=== PATIENT | male | born 1925 | race Caucasian/White ===

== ENCOUNTER 2016-06-07 17:04 | Observation (INO) | payer MEDICARE, BC ==
[2016-06-07] MEDS ORDERED: NITROGLYCERIN OINT 1 INCH/GM PACKET TOPICAL STA (17:42)
[2016-06-07] MEDS ORDERED: ASPIRIN 81 MG CHEW PO STA (17:42)
--- NOTE | 2016-06-07 17:45 | ED ---
General Adult HPI - General Chief complaint: Chest Pain Stated complaint: chest pain Time Seen by Provider: 06/07/16 17:38 Source: patient, family, RN notes reviewed Mode of arrival: ambulatory Limitations: no limitations - History of Present Illness Initial comments: Patient is a pleasant 89-year-old male presenting to the emergency Department with plaints of chest discomfort. Onset of symptoms was around noon. Discomfort has been intermittent. Discomfort is sharp of the left chest. No Associated dyspnea, nausea, or diaphoresis. Patient is unclear if he has had similar symptoms previously. No leg pain or swelling. No cough or fever. - Related Data Home Medications Medication Instructions Recorded Confirmed Budesonide/Formoterol Fumarate 1 puff INHALATION RT-BID 01/14/15 06/07/16 [Symbicort 160-4.5 Mcg Inhaler] Enalapril [Vasotec] 2.5 mg PO DAILY 01/14/15 06/07/16 Ezetimibe [Zetia] 10 mg PO HS 01/14/15 06/07/16 Isosorbide Mononitrate ER [Imdur] 30 mg PO DAILY 01/14/15 06/07/16 Levothyroxine Sodium [Synthroid] 25 mcg PO DAILY 01/14/15 06/07/16 Metoprolol Tartrate [Lopressor] 25 mg PO DAILY 01/14/15 06/07/16 Simvastatin 40 mg PO HS 01/14/15 06/07/16 Vit A,C & E/Lutein/Minerals 1 tab PO BID 01/14/15 06/07/16 [Ocuvite with Lutein Tablet] Docusate [Colace] 100 mg PO HS 04/08/15 06/07/16 Ipratropium-Albuterol Nebulize 3 ml INHALATION RT-BID 04/08/15 06/07/16 [Duoneb 0.5 mg-3 mg/3 ml Soln] Diltiazem HCl 60 mg PO DAILY 08/12/15 06/07/16 Clopidogrel Bisulfate [Plavix] 75 mg PO DAILY 10/01/15 06/07/16 Aspirin EC [Ecotrin Low Dose] 81 mg PO DAILY 10/02/15 06/07/16 Pantoprazole Sodium [Protonix] 40 mg PO AC-BID 06/07/16 06/07/16 Previous Rx's Medication Instructions Recorded Nitroglycerin Sl Tabs [Nitrostat] 0.4 mg SUBLINGUAL Q5M PRN #25 tab 10/03/15 Allergies Allergy/AdvReac Type Severity Reaction Status Date / Time No Known Allergies Allergy Verified 06/07/16 17:24 Review of Systems ROS Statement: Those systems with pertinent positive or pertinent negative responses have been documented in the HPI. ROS Other: All systems not noted in ROS Statement are negative. Constitutional: Denies: fever Eyes: Denies: eye pain ENT: Denies: ear pain Respiratory: Reports: dyspnea (Chronic, unchanged). Denies: cough Cardiovascular: Reports: chest pain. Denies: palpitations Endocrine: Denies: fatigue Gastrointestinal: Denies: abdominal pain Genitourinary: Denies: dysuria Musculoskeletal: Denies: back pain Skin: Denies: rash Neurological: Denies: weakness Past Medical History Past Medical History: Chest Pain / Angina, Eye Disorder, Hyperlipidemia, Hypertension, Myocardial Infarction ([place]) Additional Past Medical History / Comment(s): HX HEART MURMURS/PALPITATIONS. 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 KIDNEY STONES. O2 2L/NC AT HS Last Myocardial Infarction Date:: 2004 History of Any Multi-Drug Resistant Organisms: None Reported Past Surgical History: Heart Catheterization, Heart Catheterization With Stent, Hernia Repair, Joint Replacement, Orthopedic Surgery Additional Past Surgical History / Comment(s): BILAT CATARACTS REMOVED. COLONOSCOPY. CYSTOSCOPY. RT KNEE SCOPE. RT TKA. Bilate kidney stones removed. LT DESI X2 Past Anesthesia/Blood Transfusion Reactions: Postoperative Nausea & Vomiting ( PONV) Date of Last Stent Placement:: 2002 & 2012 Past Psychological History: No Psychological Hx Reported Smoking Status: Former smoker Past Alcohol Use History: None Reported Past Drug Use History: None Reported - Past Family History Father Family Medical History: Renal Disease Mother Family Medical History: Diabetes Mellitus General Exam Limitations: no limitations General appearance: alert, in no apparent distress Head exam: Present: atraumatic Eye exam: Present: normal appearance, PERRL ENT exam: Present: normal oropharynx Neck exam: Present: normal inspection Respiratory exam: Present: normal lung sounds bilaterally. Absent: chest wall tenderness Cardiovascular Exam: Present: regular rate, normal rhythm Expanded Peripheral pulses: 2+: Radial (R), Radial (L), Posterior Tibialis (R), Posterior Tibialis (L) GI/Abdominal exam: Present: soft. Absent: tenderness Extremities exam: Present: normal inspection. Absent: pedal edema, calf tenderness Neurological exam: Present: alert Psychiatric exam: Present: normal affect, normal mood Skin exam: Absent: rash Course Vital Signs 06/07/16 06/07/16 17:13 19:11 Temperature 98.5 F Pulse Rate 63 60 Respiratory 18 18 Rate Blood Pressure 163/78 163/79 O2 Sat by Pulse 96 96 Oximetry EKG Findings - EKG Comments: EKG Findings:: Sinus rhythm at 64. Premature atrial complexes Are present. IN 202. QRS 86. QT 388. QTC 400. Left axis. Criteria for LVH. No acute ST change. Medical Decision Making - Medical Decision Making Patient reexamined and resting comfortably in bed. Symptoms improved with nitroglycerin paste. Patient and family updated on results and plans. Case discussed in detail with Dr. Gutierrez, who will admit his patient. Consult placed for Dr. Clemons, heparin started, admission orders placed. - Lab Data Result diagrams: 06/07/16 17:25 06/07/16 17:25 Lab Results 06/07/16 06/07/16 06/07/16 Range/Units 17:25 17:25 17:25 WBC 5.8 (3.8-10.6) k/uL RBC 4.71 (4.30-5.90) m/uL Hgb 14.5 (13.0-17.5) gm/dL Hct 42.6 (39.0-53.0) % MCV 90.5 (80.0-100.0) fL MCH 30.7 (25.0-35.0) pg MCHC 34.0 (31.0-37.0) g/dL RDW 14.1 (11.5-15.5) % Plt Count 161 (150-450) k/uL Neutrophils % 63 % Lymphocytes % 24 % Monocytes % 7 % Eosinophils % 3 % Basophils % 1 % Neutrophils # 3.7 (1.3-7.7) k/uL Lymphocytes # 1.4 (1.0-4.8) k/uL Monocytes # 0.4 (0-1.0) k/uL Eosinophils # 0.2 (0-0.7) k/uL Basophils # 0.0 (0-0.2) k/uL PT (9.0-12.0) sec INR (<1.1) APTT (22.0-30.0) sec Sodium 146 H (137-145) mmol/L Potassium 4.7 (3.5-5.1) mmol/L Chloride 107 (98-107) mmol/L Carbon Dioxide 24 (22-30) mmol/L Anion Gap 15 mmol/L BUN 25 H (9-20) mg/dL Creatinine 1.51 H (0.66-1.25) mg/dL Est GFR (MDRD) Af Amer 53 (>60 ml/min/1.73 sqM) Est GFR (MDRD) Non-Af 44 (>60 ml/min/1.73 sqM) Glucose 103 H (74-99) mg/dL Calcium 9.7 (8.4-10.2) mg/dL Magnesium 1.8 (1.6-2.3) mg/dL Total Bilirubin 0.5 (0.2-1.3) mg/dL AST 24 (17-59) U/L ALT 30 (21-72) U/L Alkaline Phosphatase 69 (38-126) U/L Total Creatine Kinase 127 (55-170) U/L CK-MB (CK-2) 3.6 H* (0.0-2.4) ng/mL CK-MB (CK-2) Rel Index 2.8 Troponin I 0.016 (0.000-0.034) ng/mL Total Protein 7.8 (6.3-8.2) g/dL Albumin 4.4 (3.5-5.0) g/dL 06/07/16 Range/Units 17:25 WBC (3.8-10.6) k/uL RBC (4.30-5.90) m/uL Hgb (13.0-17.5) gm/dL Hct (39.0-53.0) % MCV (80.0-100.0) fL MCH (25.0-35.0) pg MCHC (31.0-37.0) g/dL RDW (11.5-15.5) % Plt Count (150-450) k/uL Neutrophils % % Lymphocytes % % Monocytes % % Eosinophils % % Basophils % % Neutrophils # (1.3-7.7) k/uL Lymphocytes # (1.0-4.8) k/uL Monocytes # (0-1.0) k/uL Eosinophils # (0-0.7) k/uL Basophils # (0-0.2) k/uL PT 10.9 (9.0-12.0) sec INR 1.1 (<1.1) APTT 22.6 (22.0-30.0) sec Sodium (137-145) mmol/L Potassium (3.5-5.1) mmol/L Chloride (98-107) mmol/L Carbon Dioxide (22-30) mmol/L Anion Gap mmol/L BUN (9-20) mg/dL Creatinine (0.66-1.25) mg/dL Est GFR (MDRD) Af Amer (>60 ml/min/1.73 sqM) Est GFR (MDRD) Non-Af (>60 ml/min/1.73 sqM) Glucose (74-99) mg/dL Calcium (8.4-10.2) mg/dL Magnesium (1.6-2.3) mg/dL Total Bilirubin (0.2-1.3) mg/dL AST (17-59) U/L ALT (21-72) U/L Alkaline Phosphatase (38-126) U/L Total Creatine Kinase (55-170) U/L CK-MB (CK-2) (0.0-2.4) ng/mL CK-MB (CK-2) Rel Index Troponin I (0.000-0.034) ng/mL Total Protein (6.3-8.2) g/dL Albumin (3.5-5.0) g/dL - Radiology Data Interpreted by me: Chest x-ray shows interstitial changes. Critical Care Time Critical Care Time: Yes Total Critical Care Time: 32 Disposition Clinical Impression: Unstable angina pectoris Disposition: ADMITTED IP TO THIS HOSP
[2016-06-07 17:57] LABS: Basophils % (A) 1 %; CH 30.9; CHCM 34.3; Eosinophils # (A) 0.2 k/uL (0-0.7); Eosinophils % (A) 3 %; HCT 42.6 % (39.0-53.0); HGB 14.5 gm/dL (13.0-17.5); Luc # (Auto) 0.13; Luc % (Auto) 2; Lymphocytes # (A) 1.4 k/uL (1.0-4.8); Lymphocytes % (A) 24 %; MCH 30.7 pg (25.0-35.0); MCV 90.5 fL (80.0-100.0); Mean Platelet Volume 7.2; Monocytes # (A) 0.4 k/uL (0-1.0); Monocytes % (A) 7 %; Neutrophils # (A) 3.7 k/uL (1.3-7.7); Neutrophils % (A) 63 %; RBC 4.71 m/uL (4.30-5.90); RDW 14.1 % (11.5-15.5); WBC 5.8 k/uL (3.8-10.6); WBC (Perox) 6.13
[2016-06-07 18:09] LABS: Calcium 9.7 mg/dL (8.4-10.2); Magnesium 1.8 mg/dL (1.6-2.3); Potassium 4.7 mmol/L (3.5-5.1); Total Bilirubin 0.5 mg/dL (0.2-1.3); Total Protein 7.8 g/dL (6.3-8.2)
[2016-06-07 18:16] LABS: INR 1.1 (<1.1); Partial Thromboplastin Time 22.6 sec (22.0-30.0); Prothrombin Time 10.9 sec (9.0-12.0)
[2016-06-07 18:29] LABS: Troponin I 0.016 ng/mL (0.000-0.034)
[2016-06-07 18:34] LABS: Creatine Kinase MB 3.6 ng/mL (0.0-2.4)
[2016-06-07] MEDS ORDERED: HEPARIN SODIUM,PORCINE 5,000 UNIT/ML 1 ML VIAL IV ONE (19:23)
[2016-06-07] MEDS ORDERED: NITROGLYCERIN SL TABS 0.4 MG TAB SUBLINGUAL PRN (19:23)
[2016-06-07] MEDS ORDERED: HEPARIN SODIUM,PORCINE 5,000 UNIT/ML 1 ML VIAL IV PRN (19:23)
[2016-06-07] MEDS ORDERED: HEPARIN SODIUM,PORCINE/D5W PMX 25,000 UNIT in DEXTROSE/WATER 1 500ML.BAG IV SCH (19:30)
--- NOTE | 2016-06-07 19:36 | XR ---
EXAMINATION TYPE: XR chest 2V DATE OF EXAM: 06/07/2016 5:56 PM COMPARISON: January 07, 2016 HISTORY: Pain TECHNIQUE: Frontal and lateral views of the chest are obtained. FINDINGS: The architectural distortion seen on the prior study is redemonstrated. Pleural spaces are negative. No abnormal gas or fluid collections. The cardiomediastinal silhouette is unchanged when compared with the prior study; aortic valve prosth esis is unchanged. No definite lung abnormality, given the widespread coarse reticular pattern which appears to represen t chronic interstitial change. IMPRESSION: NO DEFINITE ACUTE CARDIOPULMONARY OR PLEURAL PROCESS.
[2016-06-07] MEDS: IPRATROPIUM-ALBUTEROL 3 ML NEB INHALATION SCH (20:18)
[2016-06-07] MEDS: SYMBICORT 160-4.5 MCG INHALER INHALATION SCH (20:18)
[2016-06-07 20:45] VITALS: BMI 28.0
[2016-06-07] MEDS ORDERED: EZETIMIBE 10 MG TAB PO SCH (21:00)
[2016-06-07] MEDS ORDERED: DOCUSATE 100 MG CAP PO SCH (21:00)
[2016-06-07] MEDS ORDERED: ATORVASTATIN 20 MG TAB PO SCH (21:00)
[2016-06-07] MEDS: NITROGLYCERIN OINT 1 INCH/GM PACKET TOPICAL SCH (23:15)
[2016-06-07 23:51] LABS: Troponin I 0.015 ng/mL (0.000-0.034)
[2016-06-08] MEDS: NITROGLYCERIN OINT 1 INCH/GM PACKET TOPICAL SCH (06:15)
[2016-06-08] MEDS: PANTOPRAZOLE 40 MG TABLET PO SCH ×2 (06:15→16:20)
[2016-06-08] MEDS ORDERED: LEVOTHYROXINE 25 MCG TAB PO SCH (06:30)
[2016-06-08 07:42] LABS: Mean Platelet Volume 7.5
[2016-06-08 08:14] VITALS: RESP 18
[2016-06-08 08:20] LABS: Troponin I 0.016 ng/mL (0.000-0.034)
[2016-06-08 08:28] LABS: Cholesterol 106 mg/dL (<200); HDL Cholesterol 52 mg/dL (40-60); Triglycerides 68 mg/dL (<150)
--- NOTE | 2016-06-08 08:48 | P.CRDCN ---
History of Present Illness Consult date: 06/08/16 Requesting physician: Wallace Gutierrez Consult reason: chest pain Chief complaint: Chest pain History of present illness: This is a pleasant 89-year-old gentleman who follows regularly with Dr. Clemons in the office. He has a known history of coronary artery disease with prior RCA stent in 2003, circumflex stent in 2012, most recent cardiac catheterization was performed in January of 2015 where the patient was found to have a lesion in the LAD which was FFR'd by Dr. Figueredo, measuring 0.88 , indicating a nonsignificant lesion and medical therapy was advised at that time. Genoveva scan performed in September of last year negative for reversible ischemia. Patient also has known moderate to severe aortic stenosis for which he underwent TAVR at [facility]. History also of hypertension, hyperlipidemia, hypothyroidism, COPD, mild renal insufficiency. Patient presents to the hospital on this occasion with symptoms of chest pain. Patient states that around noon yesterday and experienced a sharp chest pain in the left side of his chest area, which she describes as an electrical shock type of pain, lasted one to 2 seconds. This recurred on multiple occasions. He denies any shortness of breath with the pain, however states that he has been feeling mildly more short of breath recently. Patient denies any pressure or heaviness in the chest. EKG on arrival here showed a normal sinus rhythm with occasional PAC, no acute changes noted. Repeat EKG performed this morning showed normal sinus rhythm with no acute changes. Lab data, WBC 5.8, hemoglobin 14.5, potassium 4.7, BUN 25, creatinine 1.5. Troponins 0.016, 0.015, 0.016. Blood pressure on arrival to the emergency room 163/78, heart rate in the 60s, 96% on room air. Blood pressure this morning 146/70, heart rate in the 60s. At the time of my examination this morning, patient states he has had no further episodes of chest pain. According to him, he had Nitropaste applied in the ER and since then has had no further chest discomfort. Chest x-ray reveal any acute cardiopulmonary process. Past Medical History Past Medical History: Chest Pain / Angina, Eye Disorder, Hyperlipidemia, Hypertension, Myocardial Infarction ([place]) Additional Past Medical History / Comment(s): HX HEART MURMURS/PALPITATIONS. 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 KIDNEY STONES. O2 2L/NC AT HS Last Myocardial Infarction Date:: 2004 History of Any Multi-Drug Resistant Organisms: None Reported Past Surgical History: Heart Catheterization, Heart Catheterization With Stent, Hernia Repair, Joint Replacement, Orthopedic Surgery Additional Past Surgical History / Comment(s): BILAT CATARACTS REMOVED. COLONOSCOPY. CYSTOSCOPY. RT KNEE SCOPE. RT TKA. Bilate kidney stones removed. LT DESI X2 Past Anesthesia/Blood Transfusion Reactions: Postoperative Nausea & Vomiting ( PONV) Date of Last Stent Placement:: 2002 & 2012 Past Psychological History: No Psychological Hx Reported Smoking Status: Former smoker Past Alcohol Use History: None Reported Past Drug Use History: None Reported - Past Family History Father Family Medical History: Renal Disease Mother Family Medical History: Diabetes Mellitus Medications and Allergies Home Medications Medication Instructions Recorded Confirmed Type Budesonide/Formoterol Fumarate 1 puff INHALATION RT-BID 01/14/15 06/07/16 History [Symbicort 160-4.5 Mcg Inhaler] Enalapril [Vasotec] 2.5 mg PO DAILY 01/14/15 06/07/16 History Ezetimibe [Zetia] 10 mg PO HS 01/14/15 06/07/16 History Isosorbide Mononitrate ER [Imdur] 30 mg PO DAILY 01/14/15 06/07/16 History Levothyroxine Sodium [Synthroid] 25 mcg PO DAILY 01/14/15 06/07/16 History Metoprolol Tartrate [Lopressor] 25 mg PO DAILY 01/14/15 06/07/16 History Simvastatin 40 mg PO HS 01/14/15 06/07/16 History Vit A,C & E/Lutein/Minerals 1 tab PO BID 01/14/15 06/07/16 History [Ocuvite with Lutein Tablet] Docusate [Colace] 100 mg PO HS 04/08/15 06/07/16 History Ipratropium-Albuterol Nebulize 3 ml INHALATION RT-BID 04/08/15 06/07/16 History [Duoneb 0.5 mg-3 mg/3 ml Soln] Diltiazem HCl 60 mg PO BID 08/12/15 06/07/16 History Clopidogrel Bisulfate [Plavix] 75 mg PO DAILY 10/01/15 06/07/16 History Aspirin EC [Ecotrin Low Dose] 81 mg PO DAILY 10/02/15 06/07/16 History Pantoprazole Sodium [Protonix] 40 mg PO AC-BID 06/07/16 06/07/16 History Allergies Allergy/AdvReac Type Severity Reaction Status Date / Time No Known Allergies Allergy Verified 06/07/16 17:24 Physical Exam Vitals: Vital Signs Temp Pulse Pulse Resp BP Pulse Ox 06/08/16 08:00 97.3 F L 64 18 147/74 97 06/08/16 04:00 97.1 F L 67 16 154/82 95 06/08/16 00:00 86 18 151/75 94 L 06/07/16 20:36 60 06/07/16 20:21 60 97 06/07/16 20:19 97.1 F L 63 18 152/63 96 Intake and Output 06/07/16 06/08/16 06/08/16 22:59 06:59 14:59 Intake Total 240 Balance 240 Intake: Intake, IV Titration 140 Amount Heparin Sodium,Porcine/ 140 D5w Pmx 25,000 unit In Dextrose/Water 1 500ml. bag @ 11.31 UNITS/KG/HR 20 mls/hr IV .Q24H [facility] Rx #:[id number] Oral 100 Other: Voiding Method Toilet Toilet # Voids 1 1 Weight 88.768 kg 87.2 kg PHYSICAL EXAMINATION: HEENT: Head is atraumatic, normocephalic. Pupils equal, round. Neck is supple. There is no elevated jugular venous pressure. HEART EXAMINATION: Heart S1 and S2 soft systolic murmur is heard. CHEST EXAMINATION: Lungs are clear to auscultation and precussion. No chest wall tenderness is noted on palpation or with deep breathing. ABDOMEN: Soft, nontender. Bowel sounds are heard. No organomegaly noted. EXTREMITIES: 2+ peripheral pulses with no evidence of peripheral edema and no calf tenderness noted. NEUROLOGIC patient is awake, alert and oriented -3. . Results 06/08/16 06:28 06/07/16 17:25 Cardiac Enzymes 06/07/16 06/08/16 Range/Units 23:01 06:28 CK-MB (CK-2) 3.0 H* 3.0 H* (0.0-2.4) ng/mL Troponin I 0.015 0.016 (0.000-0.034) ng/mL Coagulation 06/08/16 06/08/16 Range/Units 01:22 06:28 APTT 39.8 H 98.7 H* (22.0-30.0) sec CBC 06/08/16 Range/Units 06:28 Plt Count 126 L (150-450) k/uL Current Medications Generic Name Dose Route Start Last Admin Trade Name Freq PRN Reason Stop Dose Admin Albuterol/Ipratropium 3 ml 06/07/16 20:00 06/07/16 20:18 Duoneb 0.5 Mg-3 Mg/3 Ml Soln INHALATION 3 ml RT-BID [facility] Administration Aspirin 325 mg 06/08/16 09:00 Aspirin PO DAILY [facility] Atorvastatin Calcium 20 mg 06/07/16 21:00 06/07/16 20:53 Lipitor PO 20 mg HS [facility] Administration Budesonide/Formoterol Fumarate 1 puff 06/07/16 20:00 06/07/16 20:18 Symbicort 160-4.5 Mcg Inhaler INHALATION 1 puff RT-BID [facility] Administration Clopidogrel Bisulfate 75 mg 06/08/16 09:00 Plavix PO DAILY [facility] Diltiazem HCl 60 mg 06/08/16 09:00 Cardizem Oral PO DAILY [facility] Docusate Sodium 100 mg 06/07/16 21:00 06/07/16 20:53 Colace PO 100 mg HS [facility] Administration Ezetimibe 10 mg 06/07/16 21:00 06/07/16 20:54 Zetia PO 10 mg HS [facility] Administration Heparin Sodium (Porcine) 0 unit 06/07/16 19:23 06/08/16 02:40 Heparin IV 4,000 unit Q6HR PRN Administration Low PTT Protocol Heparin Sodium/Dextrose 25,000 500 mls @ 20 mls/hr 06/07/16 19:30 06/08/16 02 :41 unit/ IV Solution IV 14 units/kg/hr .Q24H [facility] 24.76 mls/hr Protocol Titration 11.31 UNITS/KG/HR Levothyroxine Sodium 25 mcg 06/08/16 06:30 06/08/16 06:15 Synthroid PO 25 mcg DAILY@0630 [facility] Administration Lisinopril 5 mg 06/08/16 09:00 Zestril PO DAILY [facility] Metoprolol Tartrate 25 mg 06/08/16 09:00 Lopressor PO DAILY [facility] Nitroglycerin 1 inch 06/08/16 00:00 06/08/16 06:15 Nitro-Bid Oint TOPICAL 1 inch Q6HR [facility] Administration Nitroglycerin 0.4 mg 06/07/16 19:23 Nitrostat SUBLINGUAL Q5M PRN Chest Pain Pantoprazole Sodium 40 mg 06/08/16 07:30 06/08/16 06:15 Protonix PO 40 mg AC-BID [facility] Administration Sodium Chloride 10 ml 06/07/16 21:00 06/07/16 20:47 Saline Flush IV Not Given BID [facility] Intake and Output 06/07/16 06/08/16 06/08/16 22:59 06:59 14:59 Intake Total 240 Balance 240 Intake: Intake, IV Titration 140 Amount Heparin Sodium,Porcine/ 140 D5w Pmx 25,000 unit In Dextrose/Water 1 500ml. bag @ 11.31 UNITS/KG/HR 20 mls/hr IV .Q24H [facility] Rx #:[id number] Oral 100 Other: Voiding Method Toilet Toilet # Voids 1 1 Weight 88.768 kg 87.2 kg 06/08/16 06:28 EKG Interpretations (text) EKG shows normal sinus rhythm with occasional PAC, no acute changes noted. Assessment and Plan Plan: Assessment and plan #1 chest pain, atypical in nature. EKG shows normal sinus rhythm with no acute changes. Troponins 0.016, 0.015, 0.016. #2 known history of coronary artery disease with prior RCA and circumflex stenting, known disease in the LAD, most recent cath performed in January 2015 medical therapy advised. Lexiscan stress test performed in September of last year negative for reversible ischemia. #3 history of severe aortic stenosis, status post TAVR last year. #4 hypertension #5 hyperlipidemia #6 COPD, with home O2 use at night. #7 hypothyroidism #8 mild renal insufficiency Plan We will repeat an echocardiogram with Doppler study. Discontinue IV heparin. Further recommendations to follow. DNP note has been reviewed, I agree with a documented findings and plan of care. Patient was seen and examined.
[2016-06-08] MEDS ORDERED: DILTIAZEM ORAL 60 MG TAB PO SCH (09:00)
[2016-06-08] MEDS ORDERED: CLOPIDOGREL 75 MG TAB PO SCH (09:00)
[2016-06-08] MEDS ORDERED: ISOSORBIDE MONONITRATE ER 30 MG TAB.ER.24H PO SCH (09:00)
[2016-06-08] MEDS ORDERED: METOPROLOL TARTRATE 25 MG TAB PO SCH (09:00)
[2016-06-08] MEDS ORDERED: ASPIRIN 325 MG TAB PO SCH (09:00)
[2016-06-08] MEDS ORDERED: LISINOPRIL 5 MG TAB PO SCH (09:00)
--- NOTE | 2016-06-08 09:51 | P.HPIM ---
History of Present Illness H&P Date: 06/08/16 Chief Complaint: Sharp chest pain This is a history of physical and 89-year-old white male with known history of previous coronary disease. He is had cardiac catheterization in January 2015 with stenting. The patient states yesterday he had fleeting sharp chest pain in the left substernal area. He states at worst it would be a 7 out of 10 but be fleeting. No nausea. No diaphoresis. He did not take any nitroglycerin at that time. But because of the nature of the perceived pain, he was evaluated in the emergency room. He states he had this pain at rest. Evaluation emergency room did not show any significant significant. However, he states the pain stop once he was given nitroglycerin. He is now admitted to rule out myocardial infarction. Troponins have been negative. Echocardiogram is pending. Collar Trimmer consulted. However, the patient has been having significant dyspnea on exertion lately. He is scheduled to see pulmonology in the next several weeks and is requesting consultation today for dyspnea. Review of Systems Constitutional: Denies chills, Denies fever Eyes: denies blurred vision, denies pain Ears, nose, mouth and throat: Denies headache, Denies sore throat Cardiovascular: Reports shortness of breath Respiratory: Denies cough Gastrointestinal: Denies abdominal pain, Denies diarrhea, Denies nausea, Denies vomiting Musculoskeletal: Denies myalgias Integumentary: Denies pruritus, Denies rash Past Medical History Past Medical History: Chest Pain / Angina, Eye Disorder, Hyperlipidemia, Hypertension, Myocardial Infarction ([place]) Additional Past Medical History / Comment(s): HX HEART MURMURS/PALPITATIONS. 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 KIDNEY STONES. O2 2L/NC AT HS Last Myocardial Infarction Date:: 2004 History of Any Multi-Drug Resistant Organisms: None Reported Past Surgical History: Heart Catheterization, Heart Catheterization With Stent, Hernia Repair, Joint Replacement, Orthopedic Surgery Additional Past Surgical History / Comment(s): BILAT CATARACTS REMOVED. COLONOSCOPY. CYSTOSCOPY. RT KNEE SCOPE. RT TKA. Bilate kidney stones removed. LT DESI X2 Past Anesthesia/Blood Transfusion Reactions: Postoperative Nausea & Vomiting ( PONV) Date of Last Stent Placement:: 2002 & 2012 Past Psychological History: No Psychological Hx Reported Smoking Status: Former smoker Past Alcohol Use History: None Reported Past Drug Use History: None Reported - Past Family History Father Family Medical History: Renal Disease Mother Family Medical History: Diabetes Mellitus Medications and Allergies Home Medications Medication Instructions Recorded Confirmed Type Budesonide/Formoterol Fumarate 1 puff INHALATION RT-BID 01/14/15 06/07/16 History [Symbicort 160-4.5 Mcg Inhaler] Enalapril [Vasotec] 2.5 mg PO DAILY 01/14/15 06/07/16 History Ezetimibe [Zetia] 10 mg PO HS 01/14/15 06/07/16 History Isosorbide Mononitrate ER [Imdur] 30 mg PO DAILY 01/14/15 06/07/16 History Levothyroxine Sodium [Synthroid] 25 mcg PO DAILY 01/14/15 06/07/16 History Metoprolol Tartrate [Lopressor] 25 mg PO DAILY 01/14/15 06/07/16 History Simvastatin 40 mg PO HS 01/14/15 06/07/16 History Vit A,C & E/Lutein/Minerals 1 tab PO BID 01/14/15 06/07/16 History [Ocuvite with Lutein Tablet] Docusate [Colace] 100 mg PO HS 04/08/15 06/07/16 History Ipratropium-Albuterol Nebulize 3 ml INHALATION RT-BID 04/08/15 06/07/16 History [Duoneb 0.5 mg-3 mg/3 ml Soln] Diltiazem HCl 60 mg PO BID 08/12/15 06/07/16 History Clopidogrel Bisulfate [Plavix] 75 mg PO DAILY 10/01/15 06/07/16 History Aspirin EC [Ecotrin Low Dose] 81 mg PO DAILY 10/02/15 06/07/16 History Pantoprazole Sodium [Protonix] 40 mg PO AC-BID 06/07/16 06/07/16 History Allergies Allergy/AdvReac Type Severity Reaction Status Date / Time No Known Allergies Allergy Verified 06/07/16 17:24 Physical Exam Vitals: Vital Signs Temp Pulse Pulse Resp BP Pulse Ox 06/08/16 08:00 97.3 F L 64 18 147/74 97 06/08/16 04:00 97.1 F L 67 16 154/82 95 06/08/16 00:00 86 18 151/75 94 L 06/07/16 20:36 60 06/07/16 20:21 60 97 06/07/16 20:19 97.1 F L 63 18 152/63 96 Intake and Output 06/07/16 06/08/16 06/08/16 22:59 06:59 14:59 Intake Total 240 Balance 240 Intake: Intake, IV Titration 140 Amount Heparin Sodium,Porcine/ 140 D5w Pmx 25,000 unit In Dextrose/Water 1 500ml. bag @ 11.31 UNITS/KG/HR 20 mls/hr IV .Q24H [facility] Rx #:[id number] Oral 100 Other: Voiding Method Toilet Toilet # Voids 1 1 1 # Bowel Movements 0 Weight 88.768 kg 87.2 kg - Constitutional General appearance: no acute distress - EENT Eyes: EOMI - Neck Neck: no lymphadenopathy - Respiratory Respiratory: bilateral: CTA - Cardiovascular Rhythm: regular Heart sounds: normal: S1, S2 - Gastrointestinal General gastrointestinal: soft, no tenderness - Integumentary Integumentary: no calor - Neurologic Neurologic: CNII-XII intact, focal deficits Results CBC & Chem 7: 06/08/16 06:28 06/07/16 17:25 Labs: Abnormal Lab Results - Last 24 Hours (Table) 06/07/16 06/08/16 06/08/16 Range/Units 23:01 01:22 06:28 Plt Count (150-450) k/uL APTT 39.8 H (22.0-30.0) sec CK-MB (CK-2) 3.0 H* 3.0 H* (0.0-2.4) ng/mL 06/08/16 06/08/16 Range/Units 06:28 06:28 Plt Count 126 L (150-450) k/uL APTT 98.7 H* (22.0-30.0) sec CK-MB (CK-2) (0.0-2.4) ng/mL Thrombosis Risk Factor Assmnt - Choose All That Apply Other Risk Factors: Yes Each Risk Factor Represents 3 Points: Age 75 years or older Thrombosis Risk Factor Assessment Total Risk Factor Score: 3 Thrombosis Risk Factor Assessment Level: Moderate Risk Assessment and Plan (1) Unstable angina pectoris Status: Acute (2) CAD (coronary artery disease) Status: Acute (3) HTN (hypertension) Status: Acute (4) Hyperlipemia Status: Acute (5) Dyspnea on exertion Status: Acute Plan: We'll go ahead and asked Dr. Rodas for consultation given his worsening shortness of breath. Cardiology has recommended a plan to get echocardiogram today. Reconcile medications as necessary. See orders otherwise. Time with Patient: Less than 30
[2016-06-08] MEDS: IPRATROPIUM-ALBUTEROL 3 ML NEB INHALATION SCH (10:30)
--- NOTE | 2016-06-08 11:36 | P.CNPUL ---
History of Present Illness Consult date: 06/08/16 Reason for consult: chest pain Chief complaint: Chest pain History of present illness: This is an 89-year-old gentleman who will see Dr. Rodas in my office as his lung doctor. The patient is a known history of pulmonary fibrosis. He comes in with complaints of chest pain primarily. He also has chronic shortness of breath which could be either related to his underlying cardiac disease was underlying pulmonary fibrosis. He saw Dr. Rdoas last 3 months ago. His primary complaint for coming in the [place] chest pain. Apparently the put a patch on him and the pain went away. He denies any nausea vomiting. No worsening of shortness of breath. No radiation of the pain. The pain was sharp. He was told in the emergency room he did not have a myocardial infarction. His medical problem list includes pulmonary fibrosis hypertension hyperlipidemia hypothyroidism gastroesophageal reflux disease myocardial infarction and kidney stones. Review of Systems A 12 point review of systems primarily positive for chest pain. It's sharp in nature. He seems to be in different spots in his left chest and central center of his chest. It does not radiate. He denies other complaints. He does have chronic dyspnea on exertion which is unchanged. Past Medical History Past Medical History: Chest Pain / Angina, Eye Disorder, Hyperlipidemia, Hypertension, Myocardial Infarction ([place]) Additional Past Medical History / Comment(s): HX HEART MURMURS/PALPITATIONS. 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 KIDNEY STONES. O2 2L/NC AT HS Last Myocardial Infarction Date:: 2004 History of Any Multi-Drug Resistant Organisms: None Reported Past Surgical History: Heart Catheterization, Heart Catheterization With Stent, Hernia Repair, Joint Replacement, Orthopedic Surgery Additional Past Surgical History / Comment(s): BILAT CATARACTS REMOVED. COLONOSCOPY. CYSTOSCOPY. RT KNEE SCOPE. RT TKA. Bilate kidney stones removed. LT DESI X2 Past Anesthesia/Blood Transfusion Reactions: Postoperative Nausea & Vomiting ( PONV) Date of Last Stent Placement:: 2002 & 2012 Past Psychological History: No Psychological Hx Reported Smoking Status: Former smoker Past Alcohol Use History: None Reported Past Drug Use History: None Reported - Past Family History Father Family Medical History: Renal Disease Mother Family Medical History: Diabetes Mellitus Medications and Allergies Home Medications Medication Instructions Recorded Confirmed Type Budesonide/Formoterol Fumarate 1 puff INHALATION RT-BID 01/14/15 06/07/16 History [Symbicort 160-4.5 Mcg Inhaler] Enalapril [Vasotec] 2.5 mg PO DAILY 01/14/15 06/07/16 History Ezetimibe [Zetia] 10 mg PO HS 01/14/15 06/07/16 History Isosorbide Mononitrate ER [Imdur] 30 mg PO DAILY 01/14/15 06/07/16 History Levothyroxine Sodium [Synthroid] 25 mcg PO DAILY 01/14/15 06/07/16 History Metoprolol Tartrate [Lopressor] 25 mg PO DAILY 01/14/15 06/07/16 History Simvastatin 40 mg PO HS 01/14/15 06/07/16 History Vit A,C & E/Lutein/Minerals 1 tab PO BID 01/14/15 06/07/16 History [Ocuvite with Lutein Tablet] Docusate [Colace] 100 mg PO HS 04/08/15 06/07/16 History Ipratropium-Albuterol Nebulize 3 ml INHALATION RT-BID 04/08/15 06/07/16 History [Duoneb 0.5 mg-3 mg/3 ml Soln] Diltiazem HCl 60 mg PO BID 08/12/15 06/07/16 History Clopidogrel Bisulfate [Plavix] 75 mg PO DAILY 10/01/15 06/07/16 History Aspirin EC [Ecotrin Low Dose] 81 mg PO DAILY 10/02/15 06/07/16 History Pantoprazole Sodium [Protonix] 40 mg PO AC-BID 06/07/16 06/07/16 History Allergies Allergy/AdvReac Type Severity Reaction Status Date / Time No Known Allergies Allergy Verified 06/07/16 17:24 Physical Exam Osteopathic Statement: *. No significant issues noted on an osteopathic structural exam other than those noted in the History and Physical/Consult. Vitals: Vital Signs Temp Pulse Pulse Resp BP Pulse Ox 06/08/16 10:35 64 06/08/16 10:29 64 06/08/16 08:00 97.3 F L 64 18 147/74 97 06/08/16 04:00 97.1 F L 67 16 154/82 95 06/08/16 00:00 86 18 151/75 94 L 06/07/16 20:36 60 06/07/16 20:21 60 97 06/07/16 20:19 97.1 F L 63 18 152/63 96 Intake and Output 06/07/16 06/08/16 06/08/16 22:59 06:59 14:59 Intake Total 240 Balance 240 Intake: Intake, IV Titration 140 Amount Heparin Sodium,Porcine/ 140 D5w Pmx 25,000 unit In Dextrose/Water 1 500ml. bag @ 11.31 UNITS/KG/HR 20 mls/hr IV .Q24H [facility] Rx #:[id number] Oral 100 Other: Voiding Method Toilet Toilet # Voids 1 1 1 # Bowel Movements 0 Weight 88.768 kg 87.2 kg No acute distress, oriented 3. Not wearing any supplemental oxygen. HEENT examinations unremarkable. Mucous membranes are moist. There are no oral lesions. Neck supple. Full range of motion. No adenopathy or thyromegaly. Cardiovascular examination reveals a regular rhythm rate. S1-S2 normal. A soft systolic murmurs noted. Lungs reveal bibasilar crackles. There are Velcro nature. He is not particularly restricted in his breathing. Abdomen soft bowel sounds are heard. Extremities are intact. There is no edema Results - Laboratory Findings CBC and BMP: 06/08/16 06:28 06/07/16 17:25 PT/INR, D-dimer PT 10.9 sec (9.0-12.0) 06/07/16 17:25 INR 1.1 (<1.1) 06/07/16 17:25 Abnormal lab findings: Abnormal Labs 06/07/16 06/08/16 06/08/16 23:01 01:22 06:28 Plt Count APTT 39.8 H CK-MB (CK-2) 3.0 H* 3.0 H* 06/08/16 06/08/16 06:28 06:28 Plt Count 126 L APTT 98.7 H* CK-MB (CK-2) - Diagnostic Findings Chest x-ray: image reviewed (Chronic interstitial changes which are unchanged) Assessment and Plan (1) Pulmonary fibrosis Status: Acute (2) Dyspnea on exertion Status: Acute (3) CAD (coronary artery disease) Status: Acute (4) Chest pain Status: Acute (5) GERD (gastroesophageal reflux disease) Status: Acute (6) HTN (hypertension) Status: Acute (7) Hyperlipemia Status: Acute (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 Not having any more chest pain or chest discomfort. The patient apparently scheduled for an echocardiogram. From the pulmonary standpoint the patient could be discharged home. The patient does have an appointment to follow up with Dr. Rodas on June 24. He should keep that appointment. Time with Patient: Greater than 30
[2016-06-08 12:02] VITALS: TEMP 97.1
[2016-06-08] MEDS: SYMBICORT 160-4.5 MCG INHALER INHALATION SCH (14:07)
--- NOTE | 2016-06-08 15:50 | P.DS ---
Providers Date of admission: 06/07/16 19:23 Attending physician: Wallace Gutierrez Consults: 06/08/16 09:51 Consult Physician Routine Consulting Provider: Sharath Rodas Consult Reason/Comments: Dyspnea on exertion Do you want consulting provider notified?: Yes Primary care physician: Wallace Gutierrez - Discharge Diagnosis(es) (1) Unstable angina pectoris Current Visit: Yes Status: Acute (2) CAD (coronary artery disease) Current Visit: No Status: Acute (3) HTN (hypertension) Current Visit: No Status: Acute (4) Hyperlipemia Current Visit: No Status: Acute (5) Dyspnea on exertion Current Visit: Yes Status: Acute Hospital Course: Raquel discharge summary 89-year-old white male essentially admitted for atypical chest pain. Myocardial infarction was ruled out. He did have some dyspnea on exertion. Neurology was then consulted. He was discharged in stable condition to follow up with him in about 3-7 days. He was tolerating diet and voiding without difficulty. Patient Condition at Discharge: Stable Plan - Discharge Summary Discharge Medication List Budesonide/Formoterol Fumarate [Symbicort 160-4.5 Mcg Inhaler] 1 puff INHALATION RT-BID 01/14/15 [History] Enalapril [Vasotec] 2.5 mg PO DAILY 01/14/15 [History] Ezetimibe [Zetia] 10 mg PO HS 01/14/15 [History] Isosorbide Mononitrate ER [Imdur] 30 mg PO DAILY 01/14/15 [History] Levothyroxine Sodium [Synthroid] 25 mcg PO DAILY 01/14/15 [History] Metoprolol Tartrate [Lopressor] 25 mg PO DAILY 01/14/15 [History] Simvastatin 40 mg PO HS 01/14/15 [History] Vit A,C & E/Lutein/Minerals [Ocuvite with Lutein Tablet] 1 tab PO BID 01/14/15 [ History] Docusate [Colace] 100 mg PO HS 04/08/15 [History] Ipratropium-Albuterol Nebulize [Duoneb 0.5 mg-3 mg/3 ml Soln] 3 ml INHALATION RT -BID 04/08/15 [History] Diltiazem HCl 60 mg PO BID 08/12/15 [History] Clopidogrel Bisulfate [Plavix] 75 mg PO DAILY 10/01/15 [History] Aspirin EC [Ecotrin Low Dose] 81 mg PO DAILY 10/02/15 [History] Nitroglycerin Sl Tabs [Nitrostat] 0.4 mg SUBLINGUAL Q5M PRN #25 tab 10/03/15 [Rx ] Pantoprazole Sodium [Protonix] 40 mg PO AC-BID 06/07/16 [History] Follow up Appointment(s)/Referral(s): Wallace Gutierrez MD [Primary Care Provider] - 3 Days
[2016-06-08 15:57] VITALS: BP 163/88; PULSE 66
== END 2016-06-08 16:51 | disposition home or self-care (01) ==
LOC: EC 17:04 → 6SEL 19:23
PROVIDERS: ADMIT Family Medicine; ATTEND Family Medicine
DX: I25.110 Atherosclerotic heart disease of native coronary artery with unstable angina pectoris (principal); I10 Essential (primary) hypertension; E78.5 Hyperlipidemia, unspecified; J84.10 Pulmonary fibrosis, unspecified; J44.9 Chronic obstructive pulmonary disease, unspecified; Z99.81 Dependence on supplemental oxygen; E03.9 Hypothyroidism, unspecified; K21.9 Gastro-esophageal reflux disease without esophagitis; N28.9 Disorder of kidney and ureter, unspecified; I25.2 Old myocardial infarction; H35.30 Unspecified macular degeneration; H54.42 Blindness, left eye, normal vision right eye; Z95.2 Presence of prosthetic heart valve; Z95.5 Presence of coronary angioplasty implant and graft; Z96.651 Presence of right artificial knee joint; Z96.642 Presence of left artificial hip joint; Z87.891 Personal history of nicotine dependence; Z79.82 Long term (current) use of aspirin; Z79.899 Other long term (current) drug therapy; Z79.02 Long term (current) use of antithrombotics/antiplatelets; Z83.3 Family history of diabetes mellitus
CPT/HCPCS: 99291 ×2; 96365; 96376 ×2; 36415; 94640 ×2; 93005; 80061; 80053; 82550 ×2; 82553 ×2; 83735; 84484 ×2; 85025; 85049; 85610; 85730 ×2; 71020; G0378 ×2; J1644 ×3; 96366

== ENCOUNTER 2016-06-22 23:44 | Emergency (ER) | payer MEDICARE, BC ==
[2016-06-22 23:58] VITALS: TEMP 97.1
--- NOTE | 2016-06-23 00:01 | ED ---
Fall HPI - General Stated Complaint: Fall Time Seen by Provider: 06/22/16 23:48 Source: patient, EMS Mode of arrival: EMS Limitations: no limitations - History of Present Illness Initial Comments: This 89-year-old male presents emergency Department chief complaints fall. Patient states she slipped on some ice and the driveway earlier today and landed on his right side. Patient complains of right all, rib pain. Patient states that he does have some pain with deep inspiration. Patient denies any shortness breath at this time. Patient denies any head injury, LOC. Denies any back pain, hip pain. Patient denies any abdominal pain including nausea, vomiting diarrhea constipation. Patient states he was able to ambulate after the fall. - Related Data Home Medications Medication Instructions Recorded Confirmed Budesonide/Formoterol Fumarate 1 puff INHALATION RT-BID 01/14/15 06/22/16 [Symbicort 160-4.5 Mcg Inhaler] Enalapril [Vasotec] 2.5 mg PO DAILY 01/14/15 06/22/16 Ezetimibe [Zetia] 10 mg PO HS 01/14/15 06/22/16 Isosorbide Mononitrate ER [Imdur] 30 mg PO DAILY 01/14/15 06/22/16 Levothyroxine Sodium [Synthroid] 25 mcg PO DAILY 01/14/15 06/22/16 Metoprolol Tartrate [Lopressor] 25 mg PO DAILY 01/14/15 06/22/16 Simvastatin 40 mg PO HS 01/14/15 06/22/16 Vit A,C & E/Lutein/Minerals 1 tab PO BID 01/14/15 06/22/16 [Ocuvite with Lutein Tablet] Docusate [Colace] 100 mg PO HS 04/08/15 06/22/16 Ipratropium-Albuterol Nebulize 3 ml INHALATION RT-BID 04/08/15 06/22/16 [Duoneb 0.5 mg-3 mg/3 ml Soln] Diltiazem HCl 60 mg PO BID 08/12/15 06/22/16 Clopidogrel Bisulfate [Plavix] 75 mg PO DAILY 10/01/15 06/22/16 Aspirin EC [Ecotrin Low Dose] 81 mg PO DAILY 10/02/15 06/22/16 Pantoprazole Sodium [Protonix] 40 mg PO AC-BID 06/07/16 06/22/16 Previous Rx's Medication Instructions Recorded Nitroglycerin Sl Tabs [Nitrostat] 0.4 mg SUBLINGUAL Q5M PRN #25 tab 10/03/15 Hydrocodone/Acetaminophen [[place] 1 tab PO Q6HR PRN #20 tab 06/23/16 5-325] Levofloxacin [Levaquin] 500 mg PO DAILY #10 tab 06/23/16 Allergies Allergy/AdvReac Type Severity Reaction Status Date / Time No Known Allergies Allergy Verified 06/07/16 17:24 Review of Systems ROS Statement: Those systems with pertinent positive or pertinent negative responses have been documented in the HPI. ROS Other: All systems not noted in ROS Statement are negative. Past Medical History Past Medical History: Chest Pain / Angina, Eye Disorder, Hyperlipidemia, Hypertension, Myocardial Infarction ([place]) Additional Past Medical History / Comment(s): HX HEART MURMURS/PALPITATIONS. 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 KIDNEY STONES. O2 2L/NC AT HS Last Myocardial Infarction Date:: 2004 History of Any Multi-Drug Resistant Organisms: None Reported Past Surgical History: Heart Catheterization, Heart Catheterization With Stent, Hernia Repair, Joint Replacement, Orthopedic Surgery Additional Past Surgical History / Comment(s): BILAT CATARACTS REMOVED. COLONOSCOPY. CYSTOSCOPY. RT KNEE SCOPE. RT TKA. Bilate kidney stones removed. LT DESI X2 Past Anesthesia/Blood Transfusion Reactions: Postoperative Nausea & Vomiting ( PONV) Date of Last Stent Placement:: 2002 & 2012 Past Psychological History: No Psychological Hx Reported Smoking Status: Former smoker Past Alcohol Use History: None Reported Past Drug Use History: None Reported - Past Family History Father Family Medical History: Renal Disease Mother Family Medical History: Diabetes Mellitus General Exam Limitations: no limitations General appearance: alert, in no apparent distress Head exam: Present: atraumatic, normocephalic, normal inspection Neck exam: Present: normal inspection, full ROM. Absent: tenderness, meningismus, lymphadenopathy Respiratory exam: Present: normal lung sounds bilaterally, chest wall tenderness (Moderate right anterior to lateral lower rib tenderness). Absent: respiratory distress, wheezes, rales, rhonchi, stridor Cardiovascular Exam: Present: regular rate, normal rhythm, normal heart sounds. Absent: systolic murmur, diastolic murmur, rubs, gallop, clicks GI/Abdominal exam: Present: soft, normal bowel sounds. Absent: distended, tenderness, guarding, rebound, rigid Extremities exam: Present: normal inspection, full ROM, normal capillary refill. Absent: tenderness, pedal edema, joint swelling, calf tenderness Back exam: Present: full ROM. Absent: tenderness Neurological exam: Present: alert, oriented X3, CN II-XII intact Skin exam: Present: warm, dry, intact, normal color. Absent: rash Course Vital Signs 06/22/16 06/23/16 23:53 01:46 Temperature 97.1 F L Pulse Rate 70 68 Respiratory 18 16 Rate Blood Pressure 189/93 162/78 O2 Sat by Pulse 92 L 93 L Oximetry Medical Decision Making - Medical Decision Making 10-year-old male presents emergency department for sudden fall. Patient has not contacted rib fracture. Patient also appears to have early signs of pneumonia. Patient treated with antibiotics at this time no pain medication. Patient be discharged with incentive spirometry. Patient will have close follow-up with Dr. Gutierrez. Return parameters were discussed. Disposition Clinical Impression: Rib fractures, Fall from slipping on ice, Pneumonia Disposition: HOME SELF-CARE Condition: Stable Instructions: Rib Fracture (ED) Additional Instructions: Please return to the Emergency Department if symptoms worsen or any other concerns. Prescriptions: Hydrocodone/Acetaminophen [[place] 5-325] 1 tab PO Q6HR PRN #20 tab PRN Reason: Pain Levofloxacin [Levaquin] 500 mg PO DAILY #10 tab Time of Disposition: 02:14
--- NOTE | 2016-06-23 00:38 | XR ---
EXAMINATION TYPE: XR ribs RT w pa chest xray DATE OF EXAM: 06/23/2016 12:07 AM COMPARISON: 06/07/2016 radiographs of chest HISTORY: Right-sided hip pain after fall earlier today TECHNIQUE: Single frontal view of chest and 4 radiographs of right ribs were obtained. FINDINGS: Single frontal radiograph of chest revealed chronic interstitial lung changes. Mild increased opacities noted in the right lung base and may represent a mild active infiltrates and atelectasis. Mild nodularity is noted in both lungs and is probably a chronic change. No pneumothora x or pleural effusion is noted. There is mild cardiomegaly and atherosclerotic calcification in the aortic arch. Prosthetic cardiac v alve is noted. There is evidence of old nonunited displaced fracture of midportion of right clavicle. 4 radiographs of right ribs revealed no definite displaced acute right rib fractures. There is genera lized osteopenia. There is gas under the right hemidiaphragm most likely related to colonic gas rather than free air. H owever a clinical correlation is suggested to exclude free air. There is also suggestion of ileus wit h air-fluid levels and gas distention of bowel loops in the abdomen. IMPRESSION: 1. Possible mild infiltrate and atelectasis in the right lung base. Chronic lung changes are noted. 2. No definite displaced acute right rib fractures are noted. 3. Suggestion of mild ileus in the abdomen with air-fluid levels. Gas distention of colonic bowel loo ps is suggested under the right diaphragm, A clinical correlation is suggested to rule out free air u nder the diaphragm. 4. Nonunited displaced right clavicle fracture in the midportion.
[2016-06-23 01:47] VITALS: BP 162/78; PULSE 68; RESP 16
--- NOTE | 2016-06-23 02:07 | CT ---
EXAMINATION TYPE: CT ChestAbdPelvis wo con DATE OF EXAM: 06/23/2016 12:42 AM COMPARISON: Chest and right rib radiographs 06/23/2016. HISTORY: Fall, rt rib pain CT DLP: 825.40mGycm Unenhanced CT of the Chest, Abdomen and Pelvis Unenhanced CT of the chest ,abdomen and pelvis is performed. The lack of intravenous contrast limits evaluation of the solid and hollow viscera. Oral contrast: Not given. CT Chest: LUNGS: Chronic interstitial lung changes bilaterally with emphysematous changes. Mild bibasilar lung infiltr ates and atelectasis is noted worse on the right side. Calcified tiny granuloma is suggested in the r ight lung base. MEDIASTINUM: Thoracic aorta is of normal caliber. The heart is not enlarged. No evidence for media stinal mass or adenopathy. Coronary arterial calcification is noted. The ascending aorta measures 3.5 cm in AP diameter at the level of vanessa with mild ectatic changes. Prosthetic cardiac valve is note d. HILAR STRUCTURES: No evidence for mass. No hilar adenopathy is appreciated. OTHER: There is evidence of acute slightly displaced right 10th rib fracture as seen in the sagittal image 15 in the lateral aspect. There is also nondisplaced acute right ninth rib fractures in the lat eral aspect. There is also evidence of old healed displaced fractures of right sixth seventh and eigh th rib fractures in the lateral aspect. CONTRAST CT ABDOMEN AND PELVIS: LIVER/GB: No calcified gallstones. No space occupying hepatic lesion. Biliary tree is of normal ca liber. PANCREAS: No inflammation. No distinct mass. SPLEEN: No splenic enlargement. No lesion seen. ADRENALS: No nodule. No thickening. KIDNEYS/BLADDER: No hydronephrosis. No nephrolithiasis. Benign-appearing cystic changes are suggest ed in the right kidney. Urinary bladder appears grossly unremarkable. BOWEL: Mild to moderate gaseous distention of colonic bowel loops are noted under the right hemidiaph ragm. Mild to moderate colonic diverticulosis is noted. Appendix is not well visualized. Visualized appendix area showed no significant inflammation. GENITAL ORGANS: Enlarged prostate gland is noted. LYMPH NODES: No greater than 1cm abdominal or pelvic lymph nodes are appreciated. AORTA: Diffuse moderate atherosclerotic calcification is noted in the abdominal aorta and iliac arter ies with a tortuosity with mild aneurysmal dilatation of distal abdominal aorta with greatest transve rse diameter of 2.8 cm in the axial image 83. OSSEOUS STRUCTURES: There is evidence of 30-40% wedge compression fracture deformity of L2 vertebra m ost likely old. Left total hip arthroplasty changes are noted. There is generalized osteopenia. Multi level degenerative changes are present in the thoracolumbar spine. OTHER: Small fat-containing inguinal hernias are noted bilaterally. No definite free intraperitoneal air is noted. IMPRESSION: 1. Evidence of acute slightly displaced fracture of right 10th rib fracture in the lateral aspect. No ndisplaced right ninth rib fracture is also suggested in the lateral aspect. There is suggestion of displaced old healed fractures of right sixth seventh and eighth rib fractures . 2. Bibasilar lung infiltrates and atelectasis worse on the right side. 3. No pneumothorax. 4. Cystic changes in the right kidney. 5. No definite free air is noted in the abdomen and pelvis. Gaseous distention of colonic bowel loops is noted. Mild colonic diverticulosis. 6. Old compression fracture deformities of L2 vertebrae. A phone report is given to Everett Hua at the time of the dictation.
[2016-06-23] MEDS ORDERED: LEVOFLOXACIN 500 MG TAB PO STA (02:11)
[2016-06-23] MEDS ORDERED: ONDANSETRON 4 MG/2 ML VIAL IVP STA (02:21)
== END 2016-06-23 02:41 | disposition home or self-care (01) ==
LOC: EC 23:44
DX: S22.41XA Multiple fractures of ribs, right side, initial encounter for closed fracture (principal); J18.9 Pneumonia, unspecified organism; W00.0XXA Fall on same level due to ice and snow, initial encounter; I10 Essential (primary) hypertension; E78.5 Hyperlipidemia, unspecified; I20.9 Angina pectoris, unspecified; J84.10 Pulmonary fibrosis, unspecified; Z99.81 Dependence on supplemental oxygen; Z95.5 Presence of coronary angioplasty implant and graft; Z79.82 Long term (current) use of aspirin; Z79.51 Long term (current) use of inhaled steroids; Z79.02 Long term (current) use of antithrombotics/antiplatelets; Z79.899 Other long term (current) drug therapy; Z87.891 Personal history of nicotine dependence; I25.2 Old myocardial infarction
CPT/HCPCS: 71101; 71250; 74176; 99284; 96374; J2405

== ENCOUNTER 2016-06-27 23:34 | Emergency (ER) | payer MEDICARE, BC ==
[2016-06-28 02:26] VITALS: PULSE 68; TEMP 98.4
--- NOTE | 2016-06-28 02:31 | ED ---
General Adult HPI - General Chief complaint: Abdominal Pain Stated complaint: Constipation x 1 wk Time Seen by Provider: 06/28/16 01:57 Source: patient, RN notes reviewed Mode of arrival: wheelchair Limitations: no limitations - History of Present Illness Initial comments: This is an 89-year-old male who presents with constipation. Patient states he has not had a bowel movement for the last 6 days. Patient states he has current rib fractures and has been taking [place] for this. Patient states he takes stool softeners every day and has tried milk of magnesia, prune juice and an enema with no improvement. Patient also complains of generalized abdominal pain. Patient denies any increasing shortness of breath. Patient states his breathing is at baseline. Patient denies any recent fever, chills, chest pain, abdominal pain, nausea/vomiting/diarrhea, back pain, numbness, tingling, hematuria, headache, or visual changes, or any other complaints. - Related Data Home Medications Medication Instructions Recorded Confirmed Budesonide/Formoterol Fumarate 1 puff INHALATION RT-BID 01/14/15 06/27/16 [Symbicort 160-4.5 Mcg Inhaler] Enalapril [Vasotec] 2.5 mg PO DAILY 01/14/15 06/27/16 Ezetimibe [Zetia] 10 mg PO HS 01/14/15 06/27/16 Isosorbide Mononitrate ER [Imdur] 30 mg PO DAILY 01/14/15 06/27/16 Levothyroxine Sodium [Synthroid] 25 mcg PO DAILY 01/14/15 06/27/16 Metoprolol Tartrate [Lopressor] 25 mg PO DAILY 01/14/15 06/27/16 Simvastatin 40 mg PO HS 01/14/15 06/27/16 Vit A,C & E/Lutein/Minerals 1 tab PO BID 01/14/15 06/27/16 [Ocuvite with Lutein Tablet] Docusate [Colace] 100 mg PO HS 04/08/15 06/27/16 Ipratropium-Albuterol Nebulize 3 ml INHALATION RT-BID 04/08/15 06/27/16 [Duoneb 0.5 mg-3 mg/3 ml Soln] Diltiazem HCl 60 mg PO BID 08/12/15 06/27/16 Clopidogrel Bisulfate [Plavix] 75 mg PO DAILY 10/01/15 06/27/16 Aspirin EC [Ecotrin Low Dose] 81 mg PO DAILY 10/02/15 06/27/16 Pantoprazole Sodium [Protonix] 40 mg PO AC-BID 06/07/16 06/27/16 Previous Rx's Medication Instructions Recorded Nitroglycerin Sl Tabs [Nitrostat] 0.4 mg SUBLINGUAL Q5M PRN #25 tab 10/03/15 Hydrocodone/Acetaminophen [[place] 1 tab PO Q6HR PRN #20 tab 06/23/16 5-325] Levofloxacin [Levaquin] 500 mg PO DAILY #10 tab 06/23/16 Magnesium Citrate 100 ml PO DAILY 1 Days 06/28/16 Allergies Allergy/AdvReac Type Severity Reaction Status Date / Time No Known Allergies Allergy Verified 06/27/16 23:50 Review of Systems ROS Statement: Those systems with pertinent positive or pertinent negative responses have been documented in the HPI. ROS Other: All systems not noted in ROS Statement are negative. Past Medical History Past Medical History: Chest Pain / Angina, Eye Disorder, Hyperlipidemia, Hypertension, Myocardial Infarction ([place]) Additional Past Medical History / Comment(s): HX HEART MURMURS/PALPITATIONS. 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 KIDNEY STONES. O2 2L/NC AT HS Last Myocardial Infarction Date:: 2004 History of Any Multi-Drug Resistant Organisms: None Reported Past Surgical History: Heart Catheterization, Heart Catheterization With Stent, Hernia Repair, Joint Replacement, Orthopedic Surgery Additional Past Surgical History / Comment(s): BILAT CATARACTS REMOVED. COLONOSCOPY. CYSTOSCOPY. RT KNEE SCOPE. RT TKA. Bilate kidney stones removed. LT DESI X2 Past Anesthesia/Blood Transfusion Reactions: Postoperative Nausea & Vomiting ( PONV) Date of Last Stent Placement:: 2002 & 2012 Past Psychological History: No Psychological Hx Reported Smoking Status: Former smoker Past Alcohol Use History: None Reported Past Drug Use History: None Reported - Past Family History Father Family Medical History: Renal Disease Mother Family Medical History: Diabetes Mellitus General Exam - General Exam Comments Initial Comments: General: The patient is awake and alert, in no distress, and does not appear acutely ill. Eye: Pupils are equal, round and reactive to light, extra-ocular movements are intact. No nystagmus. There is normal conjunctiva bilaterally. No signs of icterus. Ears: TMs pink and pearly bilaterally. Normal external ear canals. Nose: Nasal turbinates pink and moist. Mouth and throat: There are moist mucous membranes and no oral lesions. Neck: The neck is supple, there is no tenderness or JVD. Cardiovascular: There is a regular rate and rhythm. No murmur, rub or gallop is appreciated. Respiratory: Patient is tender over the right side ribs due to current rib fractures. Lungs are clear to auscultation, respirations are non-labored, breath sounds are equal. No wheezes, stridor, rales, or rhonchi. Gastrointestinal: Abdomen is distended with generalized tenderness. Soft abdomen without masses or organomegaly noted. There is no rebound or guarding present. No CVA tenderness. Bowel sounds are unremarkable. Rectal: Rectal: No gross blood, no stool in the rectal vault. Normal rectal tone. Musculoskeletal: Normal ROM, no tenderness. Strength 5/5. Sensation intact. Radial Pulses equal bilaterally 2+. Neurological: A&O x 3. CN II-XII intact, There are no obvious motor or sensory deficits. Coordination appears grossly intact. Speech is normal. Skin: Skin is warm and dry and no rashes or lesions are noted. Psychiatric: Cooperative, appropriate mood & affect, normal judgment. Limitations: no limitations Course Vital Signs 06/27/16 06/28/16 06/28/16 23:47 02:24 04:20 Temperature 98.0 F 98.4 F 98.4 F Pulse Rate 77 68 68 Respiratory 18 16 18 Rate Blood Pressure 171/76 164/74 162/76 O2 Sat by Pulse 91 L 93 L 95 Oximetry Medical Decision Making - Medical Decision Making This 89-year-old male presents with constipation. On physical exam abdomen is distended with generalized tenderness. Abdomen is soft and there is no rebound , guarding or rigidity. Bowel sounds are normoactive. Rectal: No gross blood, no stool in the rectal vault. Normal rectal tone. KUB was done and reviewed showing: Suggested a mild ileus and abdomen. Overall nonobstructive bowel gas pattern. Mild to moderate fecal material is noted in the colon. Reported by Dr. Greenwood. Discussed results with patient and his family. I discussed the use of mag citrate, walking, stop the narcotics. I discussed with the patient to drink plenty of fluids. Discussed return parameters.Discussed that patient should follow up with PCP in one to 2 days or return to the [facility] for any worsening symptoms or for any further concerns. Patient was receptive to this plan and patient will be discharged home. I discussed his case with attending physician Dr. Raygoza who agrees the plan as stated above. Disposition Clinical Impression: Constipation Disposition: HOME SELF-CARE Condition: Good Instructions: Constipation (ED) Additional Instructions: Please use magnesium citrate as prescribed. Please be sure to drink plenty of fluids. Walking help her symptoms. Please avoid narcotic pain medication and use [id number] Tylenol as needed for any pain. Please use medication as discussed. Please follow-up with family doctor in the next 2 days of symptoms have not improved. Please return to emergency room if the symptoms increase or worsen or for any other concerns. Prescriptions: Magnesium Citrate 100 ml PO DAILY 1 Days Referrals: Wallace Gutierrez MD [Primary Care Provider] - 1-2 days Time of Disposition: 03:54
--- NOTE | 2016-06-28 02:44 | XR ---
EXAMINATION TYPE: XR KUB DATE OF EXAM: 06/28/2016 2:32 AM CLINICAL HISTORY: Constipation, history of fall a few days ago has broken ribs. TECHNIQUE: Single supine KUB image of the abdomen is obtained. Additional upright radiograph was obta ined. COMPARISON: 06/23/2016 FINDINGS: Mild gaseous distention of bowel loops is noted with air-fluid levels with mild ileus or enteritis ch anges. [id number] fecal material is noted in the colon. There is no visceromegaly, pneumoperito neum, or abnormal calcification appreciated. The lung bases are clear and the osseous structures ar e intact. Left hip arthroplasty changes are present. Moderate degenerative changes are present in the thoracolumbar spine. Cardiac valve stent is noted. IMPRESSION: Suggestion of mild ileus in the abdomen. Overall nonobstructive bowel gas pattern.
[2016-06-28 04:21] VITALS: BP 162/76; RESP 18
== END 2016-06-28 04:20 | disposition home or self-care (01) ==
LOC: EC 23:34
DX: K59.00 Constipation, unspecified (principal); I20.9 Angina pectoris, unspecified; I10 Essential (primary) hypertension; H35.30 Unspecified macular degeneration; E78.5 Hyperlipidemia, unspecified; H54.42 Blindness, left eye, normal vision right eye; I25.2 Old myocardial infarction; Z99.81 Dependence on supplemental oxygen; Z87.891 Personal history of nicotine dependence; Z79.899 Other long term (current) drug therapy; Z79.51 Long term (current) use of inhaled steroids; Z79.02 Long term (current) use of antithrombotics/antiplatelets; Z79.82 Long term (current) use of aspirin; Z87.442 Personal history of urinary calculi; R00.2 Palpitations
CPT/HCPCS: 74000; 99284

== ENCOUNTER 2016-06-30 13:08 | Emergency (ER) | payer MEDICARE, BC ==
[2016-06-30 13:30] VITALS: TEMP 97.7
[2016-06-30] MEDS ORDERED: SODIUM CHLORIDE 0.9% 1,000 ML IV STA (13:43)
--- NOTE | 2016-06-30 13:45 | ED ---
General Adult HPI - General Chief complaint: Abdominal Pain Stated complaint: Constipation Time Seen by Provider: 06/30/16 13:37 Source: patient, RN notes reviewed, old records reviewed Mode of arrival: ambulatory Limitations: no limitations - History of Present Illness Initial comments: Patient is an 89-year-old male who presents emergency room today with a chief complaint of constipation 6 days. He does admit to 2 rib fractures on the right side that occurred approximately 8-9 days ago. States he was given prescription for [place]. States he was using this. States not had a bowel movement past 6 days. Was seen in the emergency room just 2 days ago for this complaint. States he was passing gas. States only able to pass small amount of gas afternoon. States that he feels that his abdomen is more distended. Does admit some crampy pain that comes and goes. He denies any other complaints associated symptoms. Patient denies any recent fever, chills, shortness of breath, chest pain, back pain, abdominal pain, nausea or vomiting, numbness or tingling, dysuria or hematuria, diarrhea, headaches or visual changes, or any other complaints. - Related Data Home Medications Medication Instructions Recorded Confirmed Budesonide/Formoterol Fumarate 1 puff INHALATION RT-BID 01/14/15 06/30/16 [Symbicort 160-4.5 Mcg Inhaler] Enalapril [Vasotec] 2.5 mg PO DAILY 01/14/15 06/30/16 Ezetimibe [Zetia] 10 mg PO HS 01/14/15 06/30/16 Isosorbide Mononitrate ER [Imdur] 30 mg PO DAILY 01/14/15 06/30/16 Levothyroxine Sodium [Synthroid] 25 mcg PO DAILY 01/14/15 06/30/16 Metoprolol Tartrate [Lopressor] 25 mg PO DAILY 01/14/15 06/30/16 Simvastatin 40 mg PO HS 01/14/15 06/30/16 Vit A,C & E/Lutein/Minerals 1 tab PO BID 01/14/15 06/30/16 [Ocuvite with Lutein Tablet] Docusate [Colace] 100 mg PO HS 04/08/15 06/30/16 Ipratropium-Albuterol Nebulize 3 ml INHALATION RT-BID 04/08/15 06/30/16 [Duoneb 0.5 mg-3 mg/3 ml Soln] Diltiazem HCl 60 mg PO BID 08/12/15 06/30/16 Clopidogrel Bisulfate [Plavix] 75 mg PO DAILY 10/01/15 06/30/16 Aspirin EC [Ecotrin Low Dose] 81 mg PO DAILY 10/02/15 06/30/16 Pantoprazole Sodium [Protonix] 40 mg PO AC-BID 06/07/16 06/30/16 Previous Rx's Medication Instructions Recorded Nitroglycerin Sl Tabs [Nitrostat] 0.4 mg SUBLINGUAL Q5M PRN #25 tab 10/03/15 Hydrocodone/Acetaminophen [[place] 1 tab PO Q6HR PRN #20 tab 06/23/16 5-325] Levofloxacin [Levaquin] 500 mg PO DAILY #10 tab 06/23/16 Magnesium Citrate 100 ml PO DAILY 1 Days 06/28/16 Lactulose 10 gm PO DAILY 5 Days 06/30/16 Allergies Allergy/AdvReac Type Severity Reaction Status Date / Time No Known Allergies Allergy Verified 06/30/16 13:27 Review of Systems ROS Statement: Those systems with pertinent positive or pertinent negative responses have been documented in the HPI. ROS Other: All systems not noted in ROS Statement are negative. Past Medical History Past Medical History: Chest Pain / Angina, Eye Disorder, Hyperlipidemia, Hypertension, Myocardial Infarction ([place]) Additional Past Medical History / Comment(s): HX HEART MURMURS/PALPITATIONS. 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 KIDNEY STONES. O2 2L/NC AT HS Last Myocardial Infarction Date:: 2004 History of Any Multi-Drug Resistant Organisms: None Reported Past Surgical History: Heart Catheterization, Heart Catheterization With Stent, Hernia Repair, Joint Replacement, Orthopedic Surgery Additional Past Surgical History / Comment(s): BILAT CATARACTS REMOVED. COLONOSCOPY. CYSTOSCOPY. RT KNEE SCOPE. RT TKA. Bilate kidney stones removed. LT DESI X2 Past Anesthesia/Blood Transfusion Reactions: Postoperative Nausea & Vomiting ( PONV) Date of Last Stent Placement:: 2002 & 2012 Past Psychological History: No Psychological Hx Reported Smoking Status: Former smoker Past Alcohol Use History: None Reported Past Drug Use History: None Reported - Past Family History Father Family Medical History: Renal Disease Mother Family Medical History: Diabetes Mellitus General Exam - General Exam Comments Initial Comments: General: The patient is awake and alert, in no distress, and does not appear acutely ill. Eye: Pupils are equal, round and reactive to light, extra-ocular movements are intact. No nystagmus. There is normal conjunctiva bilaterally. No signs of icterus. Ears, nose, mouth and throat: There are moist mucous membranes and no oral lesions. Neck: The neck is supple, there is no tenderness or JVD. Cardiovascular: There is a regular rate and rhythm. No murmur, rub or gallop is appreciated. Respiratory: Lungs are clear to auscultation, respirations are non-labored, breath sounds are equal. No wheezes, stridor, rales, or rhonchi. Gastrointestinal: Soft, non-distended, non-tender abdomen without masses or organomegaly noted. There is no rebound or guarding present. No CVA tenderness. Bowel sounds are unremarkable. Musculoskeletal: Normal ROM, no tenderness. Strength 5/5. Sensation intact. Pulses equal bilaterally 2+. Neurological: A&O x 3. CN II-XII intact, There are no obvious motor or sensory deficits. Coordination appears grossly intact. Speech is normal. Skin: Skin is warm and dry and no rashes or lesions are noted. Psychiatric: Cooperative, appropriate mood & affect, normal judgment. Limitations: no limitations Course Vital Signs 06/30/16 06/30/16 06/30/16 13:28 14:05 15:08 Temperature 97.7 F Pulse Rate 72 69 67 Respiratory 18 14 15 Rate Blood Pressure 157/70 152/72 161/74 O2 Sat by Pulse 93 L 93 L 96 Oximetry 06/30/16 16:30 Temperature Pulse Rate 76 Respiratory 15 Rate Blood Pressure 168/77 O2 Sat by Pulse 93 L Oximetry Medical Decision Making - Medical Decision Making Patient reexamined at this time shows no signs of distress. Patient was given enema here in the emergency room was able to have 2 bowel movements. He states feeling better. Patient will be discharged home with prescription for lactulose to use as needed. Advised to follow-up the family doctor. Advised return to emergency room symptoms increase or worsen or for any other concerns. - Lab Data Result diagrams: 06/30/16 14:08 06/30/16 14:08 Lab Results 06/30/16 06/30/16 06/30/16 Range/Units 14:08 14:08 14:48 WBC 5.4 (3.8-10.6) k/uL RBC 4.87 (4.30-5.90) m/uL Hgb 14.8 (13.0-17.5) gm/dL Hct 44.7 (39.0-53.0) % MCV 91.7 (80.0-100.0) fL MCH 30.3 (25.0-35.0) pg MCHC 33.1 (31.0-37.0) g/dL RDW 14.3 (11.5-15.5) % Plt Count 152 (150-450) k/uL Neutrophils % 71 % Lymphocytes % 18 % Monocytes % 6 % Eosinophils % 1 % Basophils % 0 % Neutrophils # 3.9 (1.3-7.7) k/uL Lymphocytes # 1.0 (1.0-4.8) k/uL Monocytes # 0.4 (0-1.0) k/uL Eosinophils # 0.1 (0-0.7) k/uL Basophils # 0.0 (0-0.2) k/uL Sodium 142 (137-145) mmol/L Potassium 4.3 (3.5-5.1) mmol/L Chloride 101 (98-107) mmol/L Carbon Dioxide 28 (22-30) mmol/L Anion Gap 13 mmol/L BUN 30 H (9-20) mg/dL Creatinine 1.68 H (0.66-1.25) mg/dL Est GFR (MDRD) Af Amer 47 (>60 ml/min/1.73 sqM) Est GFR (MDRD) Non-Af 39 (>60 ml/min/1.73 sqM) Glucose 106 H (74-99) mg/dL Calcium 9.8 (8.4-10.2) mg/dL Total Bilirubin 0.7 (0.2-1.3) mg/dL AST 24 (17-59) U/L ALT 37 (21-72) U/L Alkaline Phosphatase 70 (38-126) U/L Total Protein 7.6 (6.3-8.2) g/dL Albumin 4.2 (3.5-5.0) g/dL Urine Color Yellow Urine Appearance Clear (Clear) Urine pH 7.0 (5.0-8.0) Ur Specific [place] 1.015 (1.001-1.035) Urine Protein 1+ H (Negative) Urine Glucose (UA) Negative (Negative) Urine Ketones Negative (Negative) Urine Blood Negative (Negative) Urine Nitrate Negative (Negative) Urine Bilirubin Negative (Negative) Urine Urobilinogen <2.0 (<2.0) mg/dL Ur Leukocyte Esterase Negative (Negative) Urine RBC 2 (0-5) /hpf Urine WBC 2 (0-5) /hpf Ur Squamous Epith Cells <1 (0-4) /hpf Urine Bacteria Rare H (None) /hpf Hyaline Casts 1 (0-2) /lpf Disposition Clinical Impression: Constipation Disposition: HOME SELF-CARE Condition: Good Instructions: Constipation (ED) Additional Instructions: Please increase oral fluids. Please use laxative as needed. Please discontinue laxative if having diarrhea. Please follow-up with the family doctor over the next 2 days. Please return to emergency room if symptoms increase or worsen or for any other concerns. Prescriptions: Lactulose 10 gm PO DAILY 5 Days Time of Disposition: 17:22
[2016-06-30 15:02] LABS: Appearance,Urine Clear (Clear); Bacteria,Urine Rare /hpf; Bilirubin,Urine Negative (Negative); Glucose,Urine (UA) Negative (Negative); Ketones,Urine Negative (Negative); Leukocyte Esterase,Urine Negative (Negative); Nitrite,Urine Negative (Negative); Particle Count 568; Protein,Urine 1+ (Negative); RBC,Urine 2 /hpf (0-5); Specific Gravity,Urine 1.015 (1.001-1.035); Squamous Epithelial Cell,Urine <1 /hpf (0-4); UA Billing (MACRO vs. MICRO) MICRO; Urobilinogen,Urine <2.0 mg/dL (<2.0); WBC,Urine 2 /hpf (0-5)
--- NOTE | 2016-06-30 15:20 | XR ---
EXAMINATION TYPE: XR abdomen complete w decub DATE OF EXAM: 06/30/2016 2:58 PM COMPARISON: 06/28/2006 HISTORY: Constipation TECHNIQUE: Single view of the chest and 2 views of the abdomen are submitted. FINDINGS: Single view of the chest fails demonstrate evidence for acute pulmonary disease. Postsurgical change seen overlying the heart likely related to valve replacement. Chronic rib deformities on the right ar e noted. Hypertrophic and degenerative change of the spine noted. Severe arthritic change right postsurgical c hange left hip. Diffuse osteopenia noted. Prominent bowel loops are seen throughout the abdomen. The bowel gas pattern is unremarkable as there is air throughout nondilated small and large bowel. No sizeable air fluid levels. No mass effects are seen. No unusual calcifications. IMPRESSION: Nonspecific abdomen.
[2016-06-30 15:33] LABS: Basophils % (A) 0 %; CH 30.6; CHCM 33.5; Eosinophils # (A) 0.1 k/uL (0-0.7); Eosinophils % (A) 1 %; HCT 44.7 % (39.0-53.0); HDW 2.75; HGB 14.8 gm/dL (13.0-17.5); Luc # (Auto) 0.18; Luc % (Auto) 3; Lymphocytes % (A) 18 %; MCH 30.3 pg (25.0-35.0); MCHC 33.1 g/dL (31.0-37.0); MCV 91.7 fL (80.0-100.0); Mean Platelet Volume 7.3; Monocytes # (A) 0.4 k/uL (0-1.0); Monocytes % (A) 6 %; Neutrophils # (A) 3.9 k/uL (1.3-7.7); Neutrophils % (A) 71 %; RBC 4.87 m/uL (4.30-5.90); RDW 14.3 % (11.5-15.5); WBC 5.4 k/uL (3.8-10.6); WBC (Perox) 5.59
[2016-06-30 15:42] LABS: Calcium 9.8 mg/dL (8.4-10.2); Potassium 4.3 mmol/L (3.5-5.1); Total Bilirubin 0.7 mg/dL (0.2-1.3); Total Protein 7.6 g/dL (6.3-8.2)
[2016-06-30 17:45] VITALS: BP 170/75; PULSE 81; RESP 16
== END 2016-06-30 17:58 | disposition home or self-care (01) ==
LOC: EC 13:08
DX: K59.00 Constipation, unspecified (principal); S22.41XA Multiple fractures of ribs, right side, initial encounter for closed fracture; X58.XXXA Exposure to other specified factors, initial encounter; I10 Essential (primary) hypertension; E78.5 Hyperlipidemia, unspecified; I20.9 Angina pectoris, unspecified; J84.10 Pulmonary fibrosis, unspecified; Z99.81 Dependence on supplemental oxygen; Z79.82 Long term (current) use of aspirin; Z79.02 Long term (current) use of antithrombotics/antiplatelets; Z79.51 Long term (current) use of inhaled steroids; Z79.899 Other long term (current) drug therapy; I25.2 Old myocardial infarction; Z95.5 Presence of coronary angioplasty implant and graft; Z87.891 Personal history of nicotine dependence
CPT/HCPCS: 36415; 74020; 80053; 81001; 85025; 96360; 96361; 99284

== ENCOUNTER 2016-12-22 12:39 | Emergency (ER) | payer MEDICARE, BC ==
[2016-12-22] MEDS ORDERED: SODIUM CHLORIDE 0.9% 1,000 ML IV STA (13:15)
--- NOTE | 2016-12-22 13:20 | ED ---
General Adult HPI - General Chief complaint: Abdominal Pain Stated complaint: poss kidney stones Time Seen by Provider: 12/22/16 13:06 Source: patient, family, RN notes reviewed Mode of arrival: wheelchair Limitations: no limitations - History of Present Illness Initial comments: 89-year-old male who presents emergency room today with chief complaint right side pain that started last night. Does admit pain seems to be worse with certain movements. He does admit that he took some acetaminophen prior to arrival which has helped with the pain. He does admit that it seems to increase bowel movement at times. States is short pain that comes and goes. States it was sharp earlier morbid all a This time. Denies any radiation. Denies any specific injury or trauma. He does admit that yesterday seemed to start after he bent down to tie shoes. He denies any other complaints. Patient denies any recent fever, chills, shortness of breath, chest pain, nausea or vomiting, numbness or tingling, dysuria or hematuria, constipation or diarrhea, headaches or visual changes, or any other complaints. - Related Data Home Medications Medication Instructions Recorded Confirmed Budesonide/Formoterol Fumarate 1 puff INHALATION RT-BID 01/14/15 12/22/16 [Symbicort 160-4.5 Mcg Inhaler] Ezetimibe [Zetia] 10 mg PO HS 01/14/15 12/22/16 Isosorbide Mononitrate ER [Imdur] 30 mg PO DAILY 01/14/15 12/22/16 Levothyroxine Sodium [Synthroid] 25 mcg PO DAILY 01/14/15 12/22/16 Metoprolol Tartrate [Lopressor] 25 mg PO DAILY 01/14/15 12/22/16 Simvastatin 40 mg PO HS 01/14/15 12/22/16 Vits A,C,E/Lutein/Minerals 1 tab PO BID 01/14/15 12/22/16 [Ocuvite with Lutein Tablet] Docusate [Colace] 100 mg PO HS 04/08/15 12/22/16 Ipratropium-Albuterol Nebulize 3 ml INHALATION RT-BID 04/08/15 12/22/16 [Duoneb 0.5 mg-3 mg/3 ml Soln] Pantoprazole Sodium [Protonix] 40 mg PO AC-BID 06/07/16 12/22/16 Aspirin 325 mg PO DAILY 12/22/16 12/22/16 Colchicin-Probenecid 0.5-500Mg 1 tab PO BID 12/22/16 12/22/16 [Colbenemid] Enalapril Maleate [Vasotec] 2.5 mg PO DAILY 12/22/16 12/22/16 Previous Rx's Medication Instructions Recorded Nitroglycerin Sl Tabs [Nitrostat] 0.4 mg SUBLINGUAL Q5M PRN #25 tab 10/03/15 Allergies Allergy/AdvReac Type Severity Reaction Status Date / Time No Known Allergies Allergy Verified 12/22/16 12:48 Review of Systems ROS Statement: Those systems with pertinent positive or pertinent negative responses have been documented in the HPI. ROS Other: All systems not noted in ROS Statement are negative. Past Medical History Past Medical History: Chest Pain / Angina, Eye Disorder, Hyperlipidemia, Hypertension, Myocardial Infarction ([place]) Additional Past Medical History / Comment(s): HX HEART MURMURS/PALPITATIONS. 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 KIDNEY STONES. O2 2L/NC AT HS Last Myocardial Infarction Date:: 2004 History of Any Multi-Drug Resistant Organisms: None Reported Past Surgical History: Heart Catheterization, Heart Catheterization With Stent, Hernia Repair, Joint Replacement, Orthopedic Surgery Additional Past Surgical History / Comment(s): BILAT CATARACTS REMOVED. COLONOSCOPY. CYSTOSCOPY. RT KNEE SCOPE. RT TKA. Bilate kidney stones removed. LT DESI X2 Past Anesthesia/Blood Transfusion Reactions: Postoperative Nausea & Vomiting ( PONV) Date of Last Stent Placement:: 2002 & 2012 Past Psychological History: No Psychological Hx Reported Smoking Status: Former smoker Past Alcohol Use History: None Reported Past Drug Use History: None Reported - Past Family History Father Family Medical History: Renal Disease Mother Family Medical History: Diabetes Mellitus General Exam - General Exam Comments Initial Comments: General: The patient is awake and alert, in no distress, and does not appear acutely ill. Eye: Pupils are equal, round and reactive to light, extra-ocular movements are intact. No nystagmus. There is normal conjunctiva bilaterally. No signs of icterus. Ears, nose, mouth and throat: There are moist mucous membranes and no oral lesions. Neck: The neck is supple, there is no tenderness or JVD. Cardiovascular: There is a regular rate and rhythm. No murmur, rub or gallop is appreciated. Respiratory: Lungs are clear to auscultation, respirations are non-labored, breath sounds are equal. No wheezes, stridor, rales, or rhonchi. Gastrointestinal: Soft, non-distended, non-tender abdomen without masses or organomegaly noted. There is no rebound or guarding present. No CVA tenderness. Bowel sounds are unremarkable. Does have tenderness to the right side just above the iliac crest. Musculoskeletal: Normal ROM, no tenderness. Strength 5/5. Sensation intact. Pulses equal bilaterally 2+. Neurological: A&O x 3. CN II-XII intact, There are no obvious motor or sensory deficits. Coordination appears grossly intact. Speech is normal. Skin: Skin is warm and dry and no rashes or lesions are noted. Psychiatric: Cooperative, appropriate mood & affect, normal judgment. Limitations: no limitations Course Vital Signs 12/22/16 12/22/16 12:45 14:11 Temperature 96.8 F L Pulse Rate 64 61 Respiratory 18 16 Rate Blood Pressure 134/73 143/85 O2 Sat by Pulse 96 96 Oximetry Medical Decision Making - Medical Decision Making Case discussed in detail with attending physician Dr. Blandon. Reexamined at this time shows no signs of distress. Resting comfortable in the stretcher. His pain does seem to be reproducible with certain movements. Point tender over the right side just above the iliac crest. No bony tenderness. Patient's labs been reviewed are unremarkable. X-rays reviewed he does admit he is having normal bowel movements. Patient will be discharged home. Advised continuous acetaminophen for pain. Advised to follow-up family doctor over the next 2 days. Advised to increase oral fluids. Advised return to emergency room if symptoms increase or worsen or for any other concerns. - Lab Data Result diagrams: 12/22/16 13:50 12/22/16 13:50 Lab Results 12/22/16 12/22/16 12/22/16 Range/Units 13:50 13:50 13:50 WBC 6.5 (3.8-10.6) k/uL RBC 4.57 (4.30-5.90) m/uL Hgb 14.1 (13.0-17.5) gm/dL Hct 41.3 (39.0-53.0) % MCV 90.4 (80.0-100.0) fL MCH 30.8 (25.0-35.0) pg MCHC 34.1 (31.0-37.0) g/dL RDW 14.7 (11.5-15.5) % Plt Count 152 (150-450) k/uL Neutrophils % 72 % Lymphocytes % 19 % Monocytes % 6 % Eosinophils % 1 % Basophils % 0 % Neutrophils # 4.7 (1.3-7.7) k/uL Lymphocytes # 1.3 (1.0-4.8) k/uL Monocytes # 0.4 (0-1.0) k/uL Eosinophils # 0.1 (0-0.7) k/uL Basophils # 0.0 (0-0.2) k/uL Sodium 143 (137-145) mmol/L Potassium 4.6 (3.5-5.1) mmol/L Chloride 109 H (98-107) mmol/L Carbon Dioxide 25 (22-30) mmol/L Anion Gap 9 mmol/L BUN 20 (9-20) mg/dL Creatinine 1.40 H (0.66-1.25) mg/dL Est GFR (MDRD) Af Amer 58 (>60 ml/min/1.73 sqM) Est GFR (MDRD) Non-Af 48 (>60 ml/min/1.73 sqM) Glucose 120 H (74-99) mg/dL Calcium 9.6 (8.4-10.2) mg/dL Total Bilirubin 0.5 (0.2-1.3) mg/dL AST 21 (17-59) U/L ALT 31 (21-72) U/L Alkaline Phosphatase 61 (38-126) U/L Total Protein 6.7 (6.3-8.2) g/dL Albumin 3.9 (3.5-5.0) g/dL Amylase 30 (30-110) U/L Lipase 70 (23-300) U/L Urine Color Yellow Urine Appearance Clear (Clear) Urine pH 6.0 (5.0-8.0) Ur Specific [place] 1.017 (1.001-1.035) Urine Protein 1+ H (Negative) Urine Glucose (UA) Negative (Negative) Urine Ketones Negative (Negative) Urine Blood Negative (Negative) Urine Nitrite Negative (Negative) Urine Bilirubin Negative (Negative) Urine Urobilinogen <2.0 (<2.0) mg/dL Ur Leukocyte Esterase Negative (Negative) Urine RBC 1 (0-5) /hpf Urine WBC <1 (0-5) /hpf Ur Squamous Epith Cells 1 (0-4) /hpf Urine Mucus Rare H (None) /hpf Disposition Clinical Impression: Abdominal pain Disposition: HOME SELF-CARE Condition: Good Instructions: Abdominal Pain (ED) Additional Instructions: Please use acetaminophen for pain as discussed. Please follow-up with family doctor in the next 2 days of symptoms have not improved. Please return to emergency room if the symptoms increase or worsen or for any other concerns. Referrals: Wallace Gutierrez MD [Primary Care Provider] - 1-2 days Time of Disposition: 15:07
[2016-12-22 14:13] VITALS: RESP 16
--- NOTE | 2016-12-22 14:22 | XR ---
EXAMINATION TYPE: XR KUB DATE OF EXAM: 12/22/2016 COMPARISON: 06/30/2016 HISTORY: Pain TECHNIQUE: One view abdominal series FINDINGS: The osseous structures are intact. The bowel gas pattern is nonspecific. Previous cardiac surgery mead ggested. Hypertrophic and degenerative changes spine. Vascular calcifications noted. Postsurgical eri nge left hip and severe arthropathy right hip. IMPRESSION: 1. Nonspecific abdomen. Few dilated bowel loops in the upper abdomen on the right. Correlate clinica lly.
[2016-12-22 14:37] LABS: Calcium 9.6 mg/dL (8.4-10.2); Potassium 4.6 mmol/L (3.5-5.1); Total Bilirubin 0.5 mg/dL (0.2-1.3); Total Protein 6.7 g/dL (6.3-8.2)
[2016-12-22 14:44] LABS: Appearance,Urine Clear (Clear); Bilirubin,Urine Negative (Negative); Glucose,Urine (UA) Negative (Negative); Ketones,Urine Negative (Negative); Leukocyte Esterase,Urine Negative (Negative); Mucus,Urine Rare /hpf; Nitrite,Urine Negative (Negative); Particle Count 759; Protein,Urine 1+ (Negative); RBC,Urine 1 /hpf (0-5); Specific Gravity,Urine 1.017 (1.001-1.035); Squamous Epithelial Cell,Urine 1 /hpf (0-4); UA Billing (MACRO vs. MICRO) MICRO; Urobilinogen,Urine <2.0 mg/dL (<2.0); WBC,Urine <1 /hpf (0-5)
[2016-12-22 14:47] LABS: Basophils % (A) 0 %; CH 30.2; CHCM 33.5; Eosinophils # (A) 0.1 k/uL (0-0.7); Eosinophils % (A) 1 %; HCT 41.3 % (39.0-53.0); HDW 2.95; HGB 14.1 gm/dL (13.0-17.5); Luc # (Auto) 0.13; Luc % (Auto) 2; Lymphocytes # (A) 1.3 k/uL (1.0-4.8); Lymphocytes % (A) 19 %; MCH 30.8 pg (25.0-35.0); MCHC 34.1 g/dL (31.0-37.0); MCV 90.4 fL (80.0-100.0); Mean Platelet Volume 7.8; Monocytes # (A) 0.4 k/uL (0-1.0); Monocytes % (A) 6 %; Neutrophils # (A) 4.7 k/uL (1.3-7.7); Neutrophils % (A) 72 %; RBC 4.57 m/uL (4.30-5.90); RDW 14.7 % (11.5-15.5); WBC 6.5 k/uL (3.8-10.6)
[2016-12-22 15:24] VITALS: BP 146/78; PULSE 60; TEMP 98
== END 2016-12-22 15:25 | disposition home or self-care (01) ==
LOC: EC 12:39
DX: R10.9 Unspecified abdominal pain (principal); I10 Essential (primary) hypertension; I25.2 Old myocardial infarction; E78.5 Hyperlipidemia, unspecified; Z87.891 Personal history of nicotine dependence; Z87.442 Personal history of urinary calculi; Z79.51 Long term (current) use of inhaled steroids; Z79.82 Long term (current) use of aspirin; Z79.899 Other long term (current) drug therapy
CPT/HCPCS: 36415; 74000; 80053; 81001; 82150; 83690; 85025; 96360; 99284

== ENCOUNTER 2017-02-25 13:30 | Observation (INO) | payer MEDICARE, BC ==
[2017-02-25] MEDS ORDERED: ASPIRIN 81 MG PO STA (13:58)
[2017-02-25] MEDS ORDERED: NITROGLYCERIN OINT 1 INCH/GM PACKET TOPICAL STA (13:58)
--- NOTE | 2017-02-25 14:00 | ED ---
General Adult HPI - General Chief complaint: Chest Pain Stated complaint: Chest Pain Time Seen by Provider: 02/25/17 13:53 Source: patient, RN notes reviewed Mode of arrival: wheelchair Limitations: no limitations - History of Present Illness Initial comments: Patient is a pleasant 89-year-old male presenting to the emergency Department with chest discomfort. Onset was around 3 AM. Patient has mild discomfort now. Patient has had similar problems previously related with heart problems. Patient has some associated mild dyspnea. No leg pain or leg swelling. Patient has a history of heart valve replacement and stent basement. Patient states he had an echo done just around a week ago which looked good. - Related Data Home Medications Medication Instructions Recorded Confirmed Budesonide/Formoterol Fumarate 1 puff INHALATION RT-BID 01/14/15 02/25/17 [Symbicort 160-4.5 Mcg Inhaler] Ezetimibe [Zetia] 10 mg PO HS 01/14/15 02/25/17 Isosorbide Mononitrate ER [Imdur] 30 mg PO DAILY 01/14/15 02/25/17 Levothyroxine Sodium [Synthroid] 25 mcg PO DAILY 01/14/15 02/25/17 Metoprolol Tartrate [Lopressor] 25 mg PO DAILY 01/14/15 02/25/17 Simvastatin 40 mg PO HS 01/14/15 02/25/17 Vits A,C,E/Lutein/Minerals 1 tab PO BID 01/14/15 02/25/17 [Ocuvite with Lutein Tablet] Docusate [Colace] 100 mg PO HS 04/08/15 02/25/17 Ipratropium-Albuterol Nebulize 3 ml INHALATION RT-BID 04/08/15 02/25/17 [Duoneb 0.5 mg-3 mg/3 ml Soln] Pantoprazole Sodium [Protonix] 40 mg PO AC-BID 06/07/16 02/25/17 Aspirin 325 mg PO DAILY 12/22/16 02/25/17 Colchicin-Probenecid 0.5-500Mg 1 tab PO BID 12/22/16 02/25/17 [Colbenemid] Diltiazem HCl 60 mg PO DAILY 02/25/17 02/25/17 Enalapril [Vasotec] 5 mg PO DAILY 02/25/17 02/25/17 Previous Rx's Medication Instructions Recorded Nitroglycerin Sl Tabs [Nitrostat] 0.4 mg SUBLINGUAL Q5M PRN #25 tab 10/03/15 Allergies Allergy/AdvReac Type Severity Reaction Status Date / Time No Known Allergies Allergy Verified 02/25/17 14:44 Review of Systems ROS Statement: Those systems with pertinent positive or pertinent negative responses have been documented in the HPI. ROS Other: All systems not noted in ROS Statement are negative. Constitutional: Denies: fever Eyes: Denies: eye pain ENT: Denies: ear pain Respiratory: Reports: dyspnea. Denies: cough Cardiovascular: Reports: chest pain Endocrine: Denies: fatigue Gastrointestinal: Denies: abdominal pain Genitourinary: Denies: dysuria Musculoskeletal: Denies: back pain Skin: Denies: rash Neurological: Denies: weakness Past Medical History Past Medical History: Chest Pain / Angina, Eye Disorder, Hyperlipidemia, Hypertension, Myocardial Infarction ([place]) Additional Past Medical History / Comment(s): HX HEART MURMURS/PALPITATIONS. 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 KIDNEY STONES. O2 2L/NC AT HS Last Myocardial Infarction Date:: 2004 History of Any Multi-Drug Resistant Organisms: None Reported Past Surgical History: Heart Catheterization, Heart Catheterization With Stent, Hernia Repair, Joint Replacement, Orthopedic Surgery Additional Past Surgical History / Comment(s): BILAT CATARACTS REMOVED. COLONOSCOPY. CYSTOSCOPY. RT KNEE SCOPE. RT TKA. Bilate kidney stones removed. LT DESI X2 Past Anesthesia/Blood Transfusion Reactions: Postoperative Nausea & Vomiting ( PONV) Date of Last Stent Placement:: 2002 & 2012 Past Psychological History: No Psychological Hx Reported Smoking Status: Former smoker Past Alcohol Use History: None Reported Past Drug Use History: None Reported - Past Family History Father Family Medical History: Renal Disease Mother Family Medical History: Diabetes Mellitus General Exam Limitations: no limitations General appearance: alert, in no apparent distress Head exam: Present: atraumatic Eye exam: Present: normal appearance, PERRL ENT exam: Present: normal oropharynx Neck exam: Present: normal inspection Respiratory exam: Present: normal lung sounds bilaterally. Absent: chest wall tenderness Cardiovascular Exam: Present: regular rate, normal rhythm Expanded Peripheral pulses: 2+: Radial (R), Radial (L), Dorsalis Pedis (R), Dorsalis Pedis (L) GI/Abdominal exam: Present: soft. Absent: tenderness Extremities exam: Present: normal inspection. Absent: pedal edema, calf tenderness Neurological exam: Present: alert Psychiatric exam: Present: normal affect, normal mood Skin exam: Present: normal color Course Vital Signs 02/25/17 02/25/17 02/25/17 13:32 13:41 13:55 Temperature 97 F L Pulse Rate 69 76 Respiratory 16 16 19 Rate Blood Pressure 149/78 156/76 O2 Sat by Pulse 95 96 Oximetry 02/25/17 02/25/17 14:19 15:00 Temperature Pulse Rate 59 L 62 Respiratory 15 18 Rate Blood Pressure 133/73 123/66 O2 Sat by Pulse 96 95 Oximetry EKG Findings - EKG Comments: EKG Findings:: No sinus rhythm 60. AL 198. QRS 86. QT 404. QTC 404. Left axis. Normal QRS. No acute ST change. Medical Decision Making - Medical Decision Making Patient reevaluated and resting comfortably in bed. Discomfort has improved. Case discussed in detail with Dr. Ramesh, who will admit for Dr. Gutierrez. Patient and family updated. - Lab Data Result diagrams: 02/25/17 13:55 02/25/17 13:55 Lab Results 02/25/17 02/25/17 02/25/17 Range/Units 13:55 13:55 13:55 WBC 6.0 (3.8-10.6) k/uL RBC 4.53 (4.30-5.90) m/uL Hgb 13.8 (13.0-17.5) gm/dL Hct 42.5 (39.0-53.0) % MCV 93.8 (80.0-100.0) fL MCH 30.4 (25.0-35.0) pg MCHC 32.4 (31.0-37.0) g/dL RDW 15.4 (11.5-15.5) % Plt Count 157 (150-450) k/uL Neutrophils % 69 % Lymphocytes % 19 % Monocytes % 6 % Eosinophils % 2 % Basophils % 0 % Neutrophils # 4.1 (1.3-7.7) k/uL Lymphocytes # 1.2 (1.0-4.8) k/uL Monocytes # 0.4 (0-1.0) k/uL Eosinophils # 0.1 (0-0.7) k/uL Basophils # 0.0 (0-0.2) k/uL PT (9.0-12.0) sec INR (<1.2) APTT (22.0-30.0) sec Sodium 142 (137-145) mmol/L Potassium 4.6 (3.5-5.1) mmol/L Chloride 106 (98-107) mmol/L Carbon Dioxide 25 (22-30) mmol/L Anion Gap 11 mmol/L BUN 19 (9-20) mg/dL Creatinine 1.37 H (0.66-1.25) mg/dL Est GFR (MDRD) Af Amer 59 (>60 ml/min/1.73 sqM) Est GFR (MDRD) Non-Af 49 (>60 ml/min/1.73 sqM) Glucose 126 H (74-99) mg/dL Calcium 9.5 (8.4-10.2) mg/dL Magnesium 1.9 (1.6-2.3) mg/dL Total Bilirubin 0.5 (0.2-1.3) mg/dL AST 22 (17-59) U/L ALT 30 (21-72) U/L Alkaline Phosphatase 67 (38-126) U/L Total Creatine Kinase 95 (55-170) U/L CK-MB (CK-2) 3.0 H* (0.0-2.4) ng/mL CK-MB (CK-2) Rel Index 3.2 Troponin I <0.012 (0.000-0.034) ng/mL NT-Pro-B Natriuret Pep pg/mL Total Protein 6.9 (6.3-8.2) g/dL Albumin 4.0 (3.5-5.0) g/dL 02/25/17 02/25/17 Range/Units 13:55 13:55 WBC (3.8-10.6) k/uL RBC (4.30-5.90) m/uL Hgb (13.0-17.5) gm/dL Hct (39.0-53.0) % MCV (80.0-100.0) fL MCH (25.0-35.0) pg MCHC (31.0-37.0) g/dL RDW (11.5-15.5) % Plt Count (150-450) k/uL Neutrophils % % Lymphocytes % % Monocytes % % Eosinophils % % Basophils % % Neutrophils # (1.3-7.7) k/uL Lymphocytes # (1.0-4.8) k/uL Monocytes # (0-1.0) k/uL Eosinophils # (0-0.7) k/uL Basophils # (0-0.2) k/uL PT 10.7 (9.0-12.0) sec INR 1.1 (<1.2) APTT 22.8 (22.0-30.0) sec Sodium (137-145) mmol/L Potassium (3.5-5.1) mmol/L Chloride (98-107) mmol/L Carbon Dioxide (22-30) mmol/L Anion Gap mmol/L BUN (9-20) mg/dL Creatinine (0.66-1.25) mg/dL Est GFR (MDRD) Af Amer (>60 ml/min/1.73 sqM) Est GFR (MDRD) Non-Af (>60 ml/min/1.73 sqM) Glucose (74-99) mg/dL Calcium (8.4-10.2) mg/dL Magnesium (1.6-2.3) mg/dL Total Bilirubin (0.2-1.3) mg/dL AST (17-59) U/L ALT (21-72) U/L Alkaline Phosphatase (38-126) U/L Total Creatine Kinase (55-170) U/L CK-MB (CK-2) (0.0-2.4) ng/mL CK-MB (CK-2) Rel Index Troponin I (0.000-0.034) ng/mL NT-Pro-B Natriuret Pep 306 pg/mL Total Protein (6.3-8.2) g/dL Albumin (3.5-5.0) g/dL - Radiology Data Radiology results: image reviewed (Chest x-ray shows chronic changes without acute abnormality.) Critical Care Time Critical Care Time: Yes Total Critical Care Time: 31 Disposition Clinical Impression: Unstable angina pectoris Disposition[facility] Referrals: Wallace Gutierrez MD [Primary Care Provider] - 1-2 days Decision Time: 15:33
[2017-02-25 14:12] LABS: Basophils % (A) 0 %; CH 31.4; CHCM 33.6; Eosinophils # (A) 0.1 k/uL (0-0.7); Eosinophils % (A) 2 %; HCT 42.5 % (39.0-53.0); HDW 2.82; HGB 13.8 gm/dL (13.0-17.5); Luc # (Auto) 0.13; Luc % (Auto) 2; Lymphocytes # (A) 1.2 k/uL (1.0-4.8); Lymphocytes % (A) 19 %; MCH 30.4 pg (25.0-35.0); MCHC 32.4 g/dL (31.0-37.0); MCV 93.8 fL (80.0-100.0); Mean Platelet Volume 8.4; Monocytes # (A) 0.4 k/uL (0-1.0); Monocytes % (A) 6 %; Neutrophils # (A) 4.1 k/uL (1.3-7.7); Neutrophils % (A) 69 %; RBC 4.53 m/uL (4.30-5.90); RDW 15.4 % (11.5-15.5); WBC (Perox) 6.18
[2017-02-25 14:22] LABS: Calcium 9.5 mg/dL (8.4-10.2); Magnesium 1.9 mg/dL (1.6-2.3); Potassium 4.6 mmol/L (3.5-5.1); Total Bilirubin 0.5 mg/dL (0.2-1.3); Total Protein 6.9 g/dL (6.3-8.2)
[2017-02-25 14:28] LABS: INR 1.1 (<1.2); Partial Thromboplastin Time 22.8 sec (22.0-30.0); Prothrombin Time 10.7 sec (9.0-12.0)
[2017-02-25 14:35] LABS: Creatine Kinase 95 U/L (55-170)
[2017-02-25 14:49] LABS: Troponin I <0.012 ng/mL (0.000-0.034)
--- NOTE | 2017-02-25 14:52 | XR ---
EXAMINATION TYPE: XR chest 2V DATE OF EXAM: 02/25/2017 COMPARISON: Prior chest x-ray and CT 06/23/2016 HISTORY: Chest pain and shortness of breath TECHNIQUE: Frontal and lateral views of the chest are obtained. FINDINGS: Pseudarthrosis is present due to old fracture of the mid diaphysis of the right clavicle. Patient is rotated. Extensive interstitial changes are again noted within the lungs. Cardiomediastina l silhouette, pulmonary vascularity and angie remarkable for aortic valve replacement change. No evide nt pneumothorax or pleural effusion. No airspace disease is seen. There are overlying cardiac leads. Posterior right fourth rib fracture is again seen, suspect posterior right fifth rib fracture and pos sibly 6. Calcified mediastinal and hilar nodes are present. Coronary artery calcifications are presen t. Increased lung volumes suspected. IMPRESSION: Old right-sided rib fractures. Interstitial lung disease. Emphysema. 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 Coronary artery disease.
[2017-02-25] MEDS ORDERED: HEPARIN SODIUM,PORCINE 5,000 UNIT/ML 1 ML VIAL IV PRN (15:30)
[2017-02-25] MEDS ORDERED: HEPARIN SODIUM,PORCINE 5,000 UNIT/ML 1 ML VIAL IV ONE (15:30)
[2017-02-25] MEDS ORDERED: HEPARIN SODIUM,PORCINE/D5W PMX 25,000 UNIT in DEXTROSE/WATER 1 500ML.BAG IV SCH (15:30)
[2017-02-25] MEDS ORDERED: NITROGLYCERIN SL TABS 0.4 MG TAB SUBLINGUAL PRN (15:30)
[2017-02-25] MEDS: NITROGLYCERIN OINT 1 INCH/GM PACKET TOPICAL SCH ×2 (18:57→23:58)
[2017-02-25 20:21] LABS: Creatine Kinase 86 U/L (55-170)
[2017-02-25 20:32] LABS: Troponin I <0.012 ng/mL (0.000-0.034)
[2017-02-25 20:33] LABS: Creatine Kinase MB 2.6 ng/mL (0.0-2.4)
[2017-02-26 02:59] LABS: Creatine Kinase 80 U/L (55-170)
[2017-02-26 03:12] LABS: Creatine Kinase MB 2.2 ng/mL (0.0-2.4); Troponin I <0.012 ng/mL (0.000-0.034)
[2017-02-26] MEDS: NITROGLYCERIN OINT 1 INCH/GM PACKET TOPICAL SCH ×4 (06:10→23:54)
[2017-02-26 07:42] LABS: Mean Platelet Volume 8.1
[2017-02-26 08:20] LABS: Cholesterol 97 mg/dL (<200); HDL Cholesterol 46 mg/dL (40-60)
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
[2017-02-26] MEDS: ASPIRIN 325 MG TAB PO SCH (13:02)
[2017-02-26] MEDS ORDERED: DILTIAZEM ORAL 60 MG TAB PO SCH (14:45)
[2017-02-26] MEDS ORDERED: METOPROLOL TARTRATE 25 MG TAB PO SCH (14:45)
[2017-02-26] MEDS ORDERED: NITROGLYCERIN SL TABS 0.4 MG TAB SUBLINGUAL PRN (14:45)
[2017-02-26] MEDS ORDERED: ASPIRIN 325 MG TAB PO SCH (14:45)
[2017-02-26] MEDS: METOPROLOL TARTRATE 12.5 MG TAB PO SCH (17:09)
[2017-02-26] MEDS: LISINOPRIL 10 MG TAB PO SCH (17:11)
[2017-02-26] MEDS: PANTOPRAZOLE 40 MG TABLET PO SCH (17:11)
[2017-02-26] MEDS: ISOSORBIDE MONONITRATE ER 30 MG TAB.ER.24H PO SCH (17:11)
[2017-02-26] MEDS: BUDESONIDE 0.5 MG/2 ML NEBU INHALATION SCH (20:15)
[2017-02-26] MEDS: VIT A,C & E-LUTEIN-MINERALS 1 EACH TAB PO SCH (20:15)
[2017-02-26] MEDS: IPRATROPIUM-ALBUTEROL 3 ML NEB INHALATION SCH (20:15)
[2017-02-26] MEDS ORDERED: DOCUSATE 100 MG CAP PO SCH (21:00)
[2017-02-26] MEDS ORDERED: COLCHICIN-PROBENECID 0.5-500MG 1 EACH TAB PO SCH (21:00)
[2017-02-26] MEDS ORDERED: EZETIMIBE 10 MG TAB PO SCH (21:00)
[2017-02-26] MEDS ORDERED: ATORVASTATIN 20 MG TAB PO SCH (21:00)
[2017-02-27] MEDS: NITROGLYCERIN OINT 1 INCH/GM PACKET TOPICAL SCH ×2 (04:50→14:27)
[2017-02-27] MEDS ORDERED: LEVOTHYROXINE 25 MCG TAB PO SCH (06:30)
[2017-02-27] MEDS: VIT A,C & E-LUTEIN-MINERALS 1 EACH TAB PO SCH (08:22)
[2017-02-27] MEDS: METOPROLOL TARTRATE 12.5 MG TAB PO SCH (08:22)
[2017-02-27] MEDS: PANTOPRAZOLE 40 MG TABLET PO SCH (08:22)
[2017-02-27] MEDS: ASPIRIN 325 MG TAB PO SCH (08:22)
[2017-02-27] MEDS: LISINOPRIL 10 MG TAB PO SCH (08:22)
[2017-02-27] MEDS: ISOSORBIDE MONONITRATE ER 30 MG TAB.ER.24H PO SCH (08:23)
[2017-02-27 08:31] LABS: Mean Platelet Volume 7.9
[2017-02-27] MEDS: BUDESONIDE 0.5 MG/2 ML NEBU INHALATION SCH (08:31)
[2017-02-27] MEDS: IPRATROPIUM-ALBUTEROL 3 ML NEB INHALATION SCH (08:31)
[2017-02-27 12:30] VITALS: BP 114/60; PULSE 64; RESP 16; TEMP 98.3
--- NOTE | 2017-02-27 12:32 | P.PN ---
Subjective Principal diagnosis: Shortness of breath This is a pleasant 89-year-old gentleman who sees Dr. Clemons in the office as an outpatient with a past medical history significant for CAD with prior RCA stenting in 2003, left circumflex stenting in 2012, with the most recent heart catheterization was performed in January 2015 where he was found to have an intermediate disease in the LAD and the FFR was done at that point and came in to be nonischemic. Beside that the patient is known to have aortic valve disease and he is status post TAVR was performed at [facility]. The patient was in his usual state of health until about a few days ago when he noticed that his heart rate has been slowing down. He did not have any symptoms of chest pain or chest discomfort. He describes exertional dyspnea which according to him is not changed and is not getting worse. 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 The EKG showed sinus rhythm without significant ST or T-wave abnormalities. The cardiac enzymes were checked and came in to be unremarkable. Objective - Vital Signs Vital signs: Vital Signs Temp 98.3 F 02/27/17 12:00 Pulse 64 02/27/17 12:00 Resp 16 02/27/17 12:00 BP 114/60 02/27/17 12:00 Pulse Ox 93 L 02/27/17 12:00 Intake & Output 02/26/17 02/27/17 02/27/17 18:59 06:59 18:59 Other: # Voids 1 - Constitutional General appearance: Present: no acute distress - Respiratory Respiratory: bilateral: CTA - Cardiovascular Rhythm: regular Heart sounds: normal: S1, S2 - Labs CBC & Chem 7: 02/27/17 07:56 02/25/17 13:55 Assessment and Plan Plan: This is a pleasant 89-year-old gentleman who sees Dr. Clemons with a known CAD and prior angioplasty and stenting, valvular heart disease and status post of her, as well as multiple comorbid conditions was admitted to the hospital with shortness of breath. The EKG came in to be unremarkable. The cardiac enzymes came in to be unremarkable as well. From the cardiac risk of standpoint overview, the patient can be discharged home.
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
--- NOTE | 2017-04-05 00:25 | P.DS ---
Providers Date of admission: 02/25/17 15:32 Expected date of discharge: 02/27/17 Attending physician: Wallace Gutierrez Consults: 02/25/17 15:30 Consult Physician Urgent Consulting Provider: Sandra Clemons Consult Reason/Comments: ua Do you want consulting provider notified?: Yes Primary care physician: Wallace Gutierrez Hospital Course: Discharge diagnosis #1 chest pain and patient with history of coronary artery disease and stent placement. Ruled out ACS #2 Valvular heart disease with history of VALVE REPLACEMENT(TAVR PROCEDURE) #3 hypertension #4 hyperlipidemia #5 pulmonary fibrosis #6 GERD 7 history of chest pain/ angina Hospital course: Patient is a pleasant 89-year-old male with a known history of coronary artery disease with recent stent, pulmonary fibrosis and other medical problems presenting to the emergency Department with chest discomfort. Onset was around 3 AM. Patient has mild discomfort now. Patient has had similar problems previously related with heart problems. Patient has some associated mild dyspnea. No leg pain or leg swelling. Patient has a history of heart valve replacement and stent basement. Patient states he had an echo done just around a week ago which looked good. The EKG showed sinus rhythm without significant ST or T-wave abnormalities. The cardiac enzymes were checked and came in to be unremarkable. Patient was continued on telemetry monitoring and serial troponin 3 negative. EKG showed no acute abnormality. Patient was continued on home medications and was seen by cardiology. No further workup recommended. No telemetric changes overnight. Patient is currently chest pain-free. And is stable to be discharged home and follow with Dr. Clemons as outpatient. Discharge physical examination was done. Patient Condition at Discharge: Good Plan - Discharge Summary Discharge Rx Participant: No New Discharge Prescriptions: New Metoprolol Tartrate [Lopressor] 12.5 mg PO BID #60 tab Continue Vits A,C,E/Lutein/Minerals [Ocuvite with Lutein Tablet] 1 tab PO BID Budesonide/Formoterol Fumarate [Symbicort 160-4.5 Mcg Inhaler] 1 puff INHALATION RT-BID Isosorbide Mononitrate ER [Imdur] 30 mg PO DAILY Simvastatin 40 mg PO HS Levothyroxine Sodium [Synthroid] 25 mcg PO DAILY Ezetimibe [Zetia] 10 mg PO HS Docusate [Colace] 100 mg PO HS Ipratropium-Albuterol Nebulize [Duoneb 0.5 mg-3 mg/3 ml Soln] 3 ml INHALATION RT-BID Nitroglycerin Sl Tabs [Nitrostat] 0.4 mg SUBLINGUAL Q5M PRN #25 tab PRN Reason: Chest Pain Pantoprazole Sodium [Protonix] 40 mg PO AC-BID Aspirin 325 mg PO DAILY Enalapril [Vasotec] 5 mg PO DAILY Discontinued Metoprolol Tartrate [Lopressor] 25 mg PO DAILY Discharge Medication List Budesonide/Formoterol Fumarate [Symbicort 160-4.5 Mcg Inhaler] 1 puff INHALATION RT-BID 01/14/15 [History] Ezetimibe [Zetia] 10 mg PO HS 01/14/15 [History] Isosorbide Mononitrate ER [Imdur] 30 mg PO DAILY 01/14/15 [History] Levothyroxine Sodium [Synthroid] 25 mcg PO DAILY 01/14/15 [History] Simvastatin 40 mg PO HS 01/14/15 [History] Vits A,C,E/Lutein/Minerals [Ocuvite with Lutein Tablet] 1 tab PO BID 01/14/15 [ History] Docusate [Colace] 100 mg PO HS 04/08/15 [History] Ipratropium-Albuterol Nebulize [Duoneb 0.5 mg-3 mg/3 ml Soln] 3 ml INHALATION RT -BID 04/08/15 [History] Nitroglycerin Sl Tabs [Nitrostat] 0.4 mg SUBLINGUAL Q5M PRN #25 tab 10/03/15 [Rx ] Pantoprazole Sodium [Protonix] 40 mg PO AC-BID 06/07/16 [History] Aspirin 325 mg PO DAILY 12/22/16 [History] Enalapril [Vasotec] 5 mg PO DAILY 02/25/17 [History] Metoprolol Tartrate [Lopressor] 12.5 mg PO BID #60 tab 02/27/17 [Rx] Follow up Appointment(s)/Referral(s): Wallace Gutierrez MD [Primary Care Provider] - 1-2 days Sandra Clemons MD [STAFF PHYSICIAN] - 1 Week Patient Instructions/Handouts: Chest Pain (DC) Discharge Disposition: HOME SELF-CARE
== END 2017-02-27 14:15 | disposition home or self-care (01) ==
LOC: EC 13:30 → 3OBS 15:32
PROVIDERS: ADMIT Family Medicine; ATTEND Family Medicine
DX: I25.118 Atherosclerotic heart disease of native coronary artery with other forms of angina pectoris (principal); H54.42 Blindness, left eye, normal vision right eye; J84.10 Pulmonary fibrosis, unspecified; I25.2 Old myocardial infarction; K21.9 Gastro-esophageal reflux disease without esophagitis; I10 Essential (primary) hypertension; E78.5 Hyperlipidemia, unspecified; M19.90 Unspecified osteoarthritis, unspecified site; Z95.2 Presence of prosthetic heart valve; Z95.5 Presence of coronary angioplasty implant and graft; Z79.51 Long term (current) use of inhaled steroids; Z79.899 Other long term (current) drug therapy; Z79.82 Long term (current) use of aspirin; Z87.891 Personal history of nicotine dependence; Z87.442 Personal history of urinary calculi; Z99.81 Dependence on supplemental oxygen
CPT/HCPCS: 96366 ×2; 96376; 96365; 99291; 36415; 94640 ×2; 94760; 93005; 83880; 80061; 80053; 82550 ×2; 82553 ×2; 83735; 84484 ×2; 85025; 85049 ×2; 85610; 85730 ×2; 71020; G0378 ×3; J1644 ×2

== ENCOUNTER → 2017-08-18 | Outpatient (CLI) | payer MEDICARE, BC ==
--- NOTE | 2017-08-18 21:36 | MR ---
EXAMINATION TYPE: MR lumbar spine wo con DATE OF EXAM: 08/18/2017 COMPARISON: [facility] dated 07/04/2017 HISTORY: Low back pain, radiculopathy CONTRAST: 0 mL intravenous Gadavist. TECHNIQUE: Multiplanar, multisequence images of the lumbar spine were acquired. FINDINGS: Cord terminates at the L1 level. There is straightening of the lumbar spine in the sagitta l plane. There is loss of disc height L2-3 through L5-S1. L5-S1: No residual disc bulge or significant disc herniation is evident. No spinal canal stenosis or neural foraminal stenosis is present L4-L5: No significant disc bulge or disc herniation. No spinal canal stenosis. No foraminal stenosi s. Mild ligamentum flavum laxity is present. There is diminished signal within the L4 vertebral body on both T1 and T2-weighted sequences.. L3-L4: No focal disc herniation is evident. There may be some right lateral disc bulge into the shravan en. Foraminal stenosis is not evident. L2-L3: No significant disc bulge or disc herniation. No spinal canal stenosis. No foraminal stenosi s. Facet hypertrophy is present.. L1-L2: No significant disc bulge or disc herniation. No spinal canal stenosis. No foraminal stenosi s. Facet hypertrophy is present with posterior lateral thecal sac compression. No stenosis is presen t.. Mild superior endplate compression of L2 may be present. This is evident on the plain films. This appears to be old based on pulse sequence. T12-L1: No significant disc bulge or disc herniation. No spinal canal stenosis. No foraminal stenos is. Neural foramen are patent.. IMPRESSION: 1. Degenerative disc changes with loss of disc height throughout the lumbar spine with mild preservat ion of L1-2. 2. Facet hypertrophy and ligamentum flavum laxity L4-5 and L1-2. At L1-2 this has some posterior late ral thecal sac compression without cord contact or stenosis.
== END | disposition home or self-care (01) ==
LOC: RADMRIMAIN 10:10
PROVIDERS: ATTEND Physical Medicine & Rehabilitation
DX: M47.27 Other spondylosis with radiculopathy, lumbosacral region (principal); M53.86 Other specified dorsopathies, lumbar region; R93.7 Abnormal findings on diagnostic imaging of other parts of musculoskeletal system
CPT/HCPCS: 72148

== ENCOUNTER 2017-08-22 08:43 | Observation (INO) | payer MEDICARE, BC ==
[2017-08-22] MEDS ORDERED: ASPIRIN 81 MG PO STA (09:02)
[2017-08-22] MEDS ORDERED: NITROGLYCERIN OINT 1 INCH/GM PACKET TOPICAL STA (09:02)
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
[2017-08-22 09:35] LABS: Basophils % (A) 0 %; Eosinophils # (A) 0.1 k/uL (0-0.7); Eosinophils % (A) 2 %; HCT 40.9 % (39.0-53.0); HGB 14.1 gm/dL (13.0-17.5); Lymphocytes # (A) 1.2 k/uL (1.0-4.8); Lymphocytes % (A) 21 %; MCH 30.2 pg (25.0-35.0); MCHC 34.4 g/dL (31.0-37.0); MCV 87.8 fL (80.0-100.0); Mean Platelet Volume 7.3; Monocytes # (A) 0.3 k/uL (0-1.0); Monocytes % (A) 5 %; Neutrophils % (A) 70 %; Platelet Count 152 k/uL (150-450); RBC 4.66 m/uL (4.30-5.90); RDW 14.6 % (11.5-15.5); WBC 5.7 k/uL (3.8-10.6)
[2017-08-22 09:39] LABS: Partial Thromboplastin Time 22.4 sec (22.0-30.0); Prothrombin Time 10.1 sec (9.0-12.0)
--- NOTE | 2017-08-22 09:41 | XR ---
EXAMINATION TYPE: XR chest 2V DATE OF EXAM: 08/22/2017 COMPARISON: 02/25/2017 TECHNIQUE: PA and lateral views submitted. HISTORY: Pain FINDINGS: The lungs are clear and there is no pneumothorax, pleural effusion, or focal pneumonia. Hyperinflat ion suggests COPD. Biapical pleural thickening noted. Atherosclerotic change aorta. Chronic fracture involving the right clavicle. Deformity involving the anterior right rib cage suggest remote trauma. Underlying chronic interstitial lung disease noted. Cardiac valve noted and there is hypertrophic and degenerative change of the spine. IMPRESSION: 1. No acute process. Correlate for COPD and chronic interstitial lung disease.
[2017-08-22 09:49] LABS: Albumin 3.8 g/dL (3.5-5.0); Calcium 9.5 mg/dL (8.4-10.2); Magnesium 1.9 mg/dL (1.6-2.3); Potassium 4.4 mmol/L (3.5-5.1); Total Bilirubin 0.4 mg/dL (0.2-1.3); Total Protein 6.9 g/dL (6.3-8.2)
[2017-08-22 10:15] LABS: Creatine Kinase 83 U/L (55-170)
[2017-08-22 10:28] LABS: Troponin I <0.012 ng/mL (0.000-0.034)
[2017-08-22] MEDS ORDERED: RX INFO: IV CONTRAST WAS GIVEN 1 EACH MISC MISCELLANE PRN (10:36)
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
[2017-08-22] MEDS ORDERED: NITROGLYCERIN SL TABS 0.4 MG TAB SUBLINGUAL PRN (12:00)
[2017-08-22] MEDS: NITROGLYCERIN OINT 1 INCH/GM PACKET TOPICAL SCH ×2 (12:24→18:30)
[2017-08-22 16:04] LABS: Creatine Kinase 73 U/L (55-170)
[2017-08-22 16:18] LABS: Creatine Kinase MB 1.7 ng/mL (0.0-2.4); Troponin I <0.012 ng/mL (0.000-0.034)
[2017-08-22] MEDS ORDERED: DEXTROSE 5%-0.45% NACL 1,000 ML IV SCH (19:00)
[2017-08-22] MEDS: IPRATROPIUM-ALBUTEROL 3 ML NEB INHALATION SCH (20:52)
[2017-08-22] MEDS: SYMBICORT 160-4.5 MCG INHALER INHALATION SCH (20:52)
[2017-08-22] MEDS ORDERED: ATORVASTATIN 20 MG TAB PO SCH (21:00)
[2017-08-22] MEDS ORDERED: EZETIMIBE 10 MG TAB PO SCH (21:00)
[2017-08-22] MEDS ORDERED: DOCUSATE 100 MG CAP PO SCH (21:00)
[2017-08-22 21:54] LABS: Creatine Kinase 62 U/L (55-170)
[2017-08-22 22:07] LABS: Creatine Kinase MB 1.4 ng/mL (0.0-2.4); Troponin I <0.012 ng/mL (0.000-0.034)
[2017-08-22] MEDS: VIT A,C & E-LUTEIN-MINERALS 1 EACH TAB PO SCH (23:23)
[2017-08-23] MEDS: NITROGLYCERIN OINT 1 INCH/GM PACKET TOPICAL SCH ×2 (01:45→06:49)
[2017-08-23 05:19] LABS: Cholesterol 111 mg/dL (<200); HDL Cholesterol 36 mg/dL (40-60); LDL Cholesterol,Calculated 32 mg/dL (0-99); Triglycerides 217 mg/dL (<150)
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
[2017-08-23] MEDS: IPRATROPIUM-ALBUTEROL 3 ML NEB INHALATION SCH (07:23)
[2017-08-23] MEDS: SYMBICORT 160-4.5 MCG INHALER INHALATION SCH (07:23)
[2017-08-23 08:00] VITALS: BP 131/79; PULSE 87; RESP 18; TEMP 97.8
[2017-08-23] MEDS ORDERED: LISINOPRIL 10 MG TAB PO SCH (09:00)
[2017-08-23] MEDS ORDERED: ASPIRIN 325 MG TAB PO SCH ×2 (09:00)
[2017-08-23] MEDS ORDERED: ISOSORBIDE MONONITRATE ER 30 MG TAB.ER.24H PO SCH (09:00)
[2017-08-23] MEDS ORDERED: METOPROLOL TARTRATE 25 MG TAB PO SCH (09:00)
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
[2017-08-23] MEDS: VIT A,C & E-LUTEIN-MINERALS 1 EACH TAB PO SCH (09:25)
== END 2017-08-23 10:12 | disposition home or self-care (01) ==
LOC: EC 08:43 → 3OBS 12:00
PROVIDERS: ADMIT Family Medicine; ATTEND Family Medicine
DX: R07.89 Other chest pain (principal); R14.2 Eructation; I10 Essential (primary) hypertension; E78.5 Hyperlipidemia, unspecified; K21.9 Gastro-esophageal reflux disease without esophagitis; E03.9 Hypothyroidism, unspecified; J84.10 Pulmonary fibrosis, unspecified; J44.9 Chronic obstructive pulmonary disease, unspecified; E78.00 Pure hypercholesterolemia, unspecified; M19.90 Unspecified osteoarthritis, unspecified site; Z95.2 Presence of prosthetic heart valve; Z95.5 Presence of coronary angioplasty implant and graft; Z87.891 Personal history of nicotine dependence; I25.2 Old myocardial infarction; Z87.01 Personal history of pneumonia (recurrent); Z79.899 Other long term (current) drug therapy; Z79.82 Long term (current) use of aspirin; Z87.442 Personal history of urinary calculi; Z79.51 Long term (current) use of inhaled steroids; H35.30 Unspecified macular degeneration; Z83.3 Family history of diabetes mellitus; Z84.2 Family history of other diseases of the genitourinary system
CPT/HCPCS: 99285 ×2; 96360; 96361; 36415; 94640 ×4; 93005; 85379; 83880; 80061; 80053; 82550; 82553; 83735; 84484; 85025; 85610; 85730; 71046; 71275; G0378 ×2; Q9967

== ENCOUNTER → 2017-08-30 | Outpatient (CLI) | payer MEDICARE, BC ==
--- NOTE | 2017-08-30 14:34 | NM ---
EXAMINATION TYPE: NM bone scan whole body DATE OF EXAM: 08/30/2017 COMPARISON: NONE HISTORY: Low back pain Delayed whole-body scanning was performed following the injection of 24.3 mCi Tc 99m MDP. Images acq uired 3 hours post injection. FINDINGS: There is abnormal uptake involving the mid and lower lumbar spine most marked uptake seen at levels o f L4-S1. Abnormal uptake involving the shoulders and sternoclavicular joints likely post arthritic. Photopenic defect involving the right knee compatible with previous surgery. Photopenic defect involving the left hip is compatible with previous surgery. Abnormal uptake involving the left knee, bilateral ankles and feet likely post arthritic. IMPRESSION: Abnormal uptake particularly through the mid and lower lumbar spine. Differential diagnosis would inc lude severe degenerative disc disease. Correlate clinically to exclude history of neoplastic process. Have reviewed the MRI of 3 1518 hours there is diminished signal in the L4 vertebral body which bridgett esponds to intense abnormal uptake by bone scan. Would recommend post contrast T1 sagittal and axial views of the lumbar spine for further assessment. Differential diagnosis would include trauma as well as neoplastic process. More moderate uptake at the L2 level corresponds with history CT finding of previous compression frac ture of L2.
== END | disposition home or self-care (01) ==
LOC: RADNMMAIN 10:14
PROVIDERS: ATTEND Physical Medicine & Rehabilitation
DX: R93.7 Abnormal findings on diagnostic imaging of other parts of musculoskeletal system (principal); R20.2 Paresthesia of skin; M54.5 Low back pain; M47.817 Spondylosis without myelopathy or radiculopathy, lumbosacral region; M51.37 Other intervertebral disc degeneration, lumbosacral region; M54.17 Radiculopathy, lumbosacral region
CPT/HCPCS: 78306; A9503

== ENCOUNTER → 2017-09-14 | Outpatient (CLI) | payer MEDICARE, BC ==
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
== END | disposition home or self-care (01) ==
LOC: RADCTMAIN 10:56
PROVIDERS: ATTEND Physical Medicine & Rehabilitation
DX: D48.0 Neoplasm of uncertain behavior of bone and articular cartilage (principal); M47.27 Other spondylosis with radiculopathy, lumbosacral region; M51.17 Intervertebral disc disorders with radiculopathy, lumbosacral region
CPT/HCPCS: 82565; 84520; 74178; 36415; Q9967